=== PATIENT | male | born 1940 | race Caucasian/White ===

== ENCOUNTER 2018-07-23 08:15 | Day surgery (SDC) | payer OTHER ==
[~2018-07-23] VITALS: Ht 172.7 cm; Wt 90.5 kg
[~2018-07-23 08:15] MED LIST: AMIL5 PO; AMLO5; ASPI81CH PO; Augmentin 875-1 EACH PO; CALC1.25T; Hydrocodone-Ap1 EA20 PO; LOPE2C PO; LOSHYD; METO50; Metoprolol Tar100 MG PO; Neurontin 300300 MG PO; OMEPRAZOLE MAGN20 MG; Omeprazole20 M1 PO; PROBIOTIC1 EAC1 PO; PSYL5.85P; PSYL5.85P PO; TAMS.4ER; TRAM50 PO; VITAMIN B-1000.4 MG PO; ZESTORETIC 20-121 E1 PO
== END 2018-07-23 10:31 | disposition home or self-care (01) ==
LOC: ORSCSDS 08:15
PROVIDERS: Internal Medicine Gastroenterology
PROC: 0DBK8ZX Excision of Ascending Colon, Via Natural or Artificial Opening Endoscopic, Diagnostic (ICD-10-PCS; principal; 2018-07-23 09:45)
PROC: 0DBH8ZX Excision of Cecum, Via Natural or Artificial Opening Endoscopic, Diagnostic (ICD-10-PCS; principal; 2018-07-23 09:45)
DX: Z12.11 Encounter for screening for malignant neoplasm of colon (principal); D12.0 Benign neoplasm of cecum; D12.2 Benign neoplasm of ascending colon; E11.9 Type 2 diabetes mellitus without complications; Z86.010 Personal history of colon polyps; K57.30 Diverticulosis of large intestine without perforation or abscess without bleeding; R10.84 Generalized abdominal pain; Z87.891 Personal history of nicotine dependence; E66.9 Obesity, unspecified; Z68.30 Body mass index [BMI] 30.0-30.9, adult; Z79.82 Long term (current) use of aspirin; Z79.899 Other long term (current) drug therapy
CPT/HCPCS: 82947; 88305; J0330; J1980; J2405; J7120

== ENCOUNTER 2019-01-19 09:11 | Day surgery (SDC) | payer OTHER ==
[~2019-01-19] VITALS: Ht 172.7 cm; Wt 93.0 kg
--- NOTE | 2019-01-19 11:45 | NUR ---
01/19/19 1145 Oxana Mcgraw WHEN PT. WAS FIRST GIVEN PROPOFOL, PT. WITH LEFT EYE TWITCHING & BODY STARTED TWITCHING/JERKING/MOVING. DR. CORREA AWARE. ONCE MORE SEDATED TWITCHING SUBSIDED,
--- NOTE | 2019-01-19 11:48 | NUR ---
01/19/19 1148 Oxana Mcgraw PT. ASKED IF WAS GOING TO COME TALK TO HIM. PT. INSTRUCTED TALKED WITH HIM IN THE ENDO ROOM. PT. THEN REALIZED THAT DID TALK WITH HIM. PT. REMINDED WHAT HAD TOLD HIM & HE WOULD CALL HIM WITH BX RESULTS.
== END 2019-01-19 11:30 | disposition home or self-care (01) ==
LOC: ORSCSDS 09:11
PROVIDERS: Internal Medicine Gastroenterology
PROC: 0DB58ZX Excision of Esophagus, Via Natural or Artificial Opening Endoscopic, Diagnostic (ICD-10-PCS; principal; 2019-01-19 10:30)
DX: K22.70 Barrett's esophagus without dysplasia (principal); E11.9 Type 2 diabetes mellitus without complications; E66.9 Obesity, unspecified; I10 Essential (primary) hypertension; Z68.31 Body mass index [BMI] 31.0-31.9, adult; Z87.891 Personal history of nicotine dependence; Z79.899 Other long term (current) drug therapy; Z79.82 Long term (current) use of aspirin
CPT/HCPCS: 82947; 87081; 88305; J2704; J7120

== ENCOUNTER → 2020-04-18 | Outpatient (CLI) | payer OTHER | LOC: LAB SHORT 17:43 → LAB 17:43 | DX: L97.509 Non-pressure chronic ulcer of other part of unspecified foot with unspecified severity (principal) | CPT/HCPCS: 87070; 87075; 87077; 87186; 87205 ==

== ENCOUNTER 2020-05-17 07:58 | Day surgery (SDC) | payer OTHER ==
[~2020-05-17] VITALS: Ht 172.7 cm; Wt 90.5 kg
[~2020-05-17 07:58] MED LIST changes: +CITA20 PO; +Flomax0.4 MG PO; +LISI20 PO; +MULVITA PO; +VIT1CAPS12 PO
--- NOTE | 2020-05-17 15:36 | NUR ---
DISCHARGE GONE OVER WITH PT, VERBALIZES UNDERSTANDIONG OF INSTRUCTIONS. PT DRESSED PER SELF WITHOUT DIFFICULTY. GROIN SITE STABLE. SALINE LOCK REMOVED WITH CATHETER INTACT. PT TO PRIVATE VEHICLE PER W/C.
== END 2020-05-17 15:30 | disposition home or self-care (01) ==
LOC: MHTC 07:58
DX: E11.51 Type 2 diabetes mellitus with diabetic peripheral angiopathy without gangrene (principal); I70.213 Atherosclerosis of native arteries of extremities with intermittent claudication, bilateral legs; E11.621 Type 2 diabetes mellitus with foot ulcer; L97.529 Non-pressure chronic ulcer of other part of left foot with unspecified severity; L97.519 Non-pressure chronic ulcer of other part of right foot with unspecified severity; K21.9 Gastro-esophageal reflux disease without esophagitis; I10 Essential (primary) hypertension; E78.5 Hyperlipidemia, unspecified; E11.42 Type 2 diabetes mellitus with diabetic polyneuropathy; Z87.891 Personal history of nicotine dependence; Z85.820 Personal history of malignant melanoma of skin; Z88.8 Allergy status to other drugs, medicaments and biological substances; Z79.82 Long term (current) use of aspirin; Z79.899 Other long term (current) drug therapy
CPT/HCPCS: 85347; 99152; 99153; C1725; C1757; C1760; C1769; C1887; C1894; J1644; J2250; J3010; J7030; J7050; Q9967

== ENCOUNTER → 2020-05-30 | Outpatient (CLI) | payer OTHER ==
[~2020-05-30] MED LIST changes: +ATOR40TA PO; +ATORVASTATIN CA20 MG PO; +Aspirin EC81 MG PO; +CLOP75 PO; +HYDR10 PO; +HYDR1TAB94 PO; +HYDROCODONE-AC1 EAC7 PO; +Isosorbide Mono30 MG PO; +PREG150 PO; +SULTRIDS PO; +TOPROL XL25 MG PO; -VITAMIN B-1000.4 MG PO; +Vitamin B Comple1 EA PO
== END | disposition home or self-care (01) ==
LOC: PLD 09:17 → LAB SHORT 09:17
DX: M86.171 Other acute osteomyelitis, right ankle and foot (principal); I96 Gangrene, not elsewhere classified; Z89.421 Acquired absence of other right toe(s); Z89.411 Acquired absence of right great toe
CPT/HCPCS: 88305; 88311

== ENCOUNTER → 2020-06-02 | Outpatient (CLI) | payer OTHER ==
[~2020-06-02] MED LIST changes: -HYDR1TAB94 PO; -HYDROCODONE-AC1 EAC7 PO
== END | disposition home or self-care (01) ==
LOC: LAB SHORT 10:00 → PLD 10:00
DX: M86.9 Osteomyelitis, unspecified (principal)
CPT/HCPCS: 87070; 87075; 87077; 87186; 87205

== ENCOUNTER 2020-06-15 06:41 | Day surgery (SDC) | payer OTHER ==
[~2020-06-15 06:41] MED LIST changes: -ATOR40TA PO; -ATORVASTATIN CA20 MG PO; -Aspirin EC81 MG PO; -CLOP75 PO; -HYDR10 PO; -Isosorbide Mono30 MG PO; -PREG150 PO; -SULTRIDS PO; -TOPROL XL25 MG PO; +VITAMIN B-1000.4 MG PO; -Vitamin B Comple1 EA PO
== END 2020-06-15 22:49 | disposition home or self-care (01) ==
LOC: WOUND 06:41
DX: E11.621 Type 2 diabetes mellitus with foot ulcer (principal); L97.512 Non-pressure chronic ulcer of other part of right foot with fat layer exposed; L97.522 Non-pressure chronic ulcer of other part of left foot with fat layer exposed; E11.52 Type 2 diabetes mellitus with diabetic peripheral angiopathy with gangrene; I96 Gangrene, not elsewhere classified; D64.9 Anemia, unspecified; I10 Essential (primary) hypertension; E11.69 Type 2 diabetes mellitus with other specified complication; M86.8X9 Other osteomyelitis, unspecified sites; E11.40 Type 2 diabetes mellitus with diabetic neuropathy, unspecified; Z89.421 Acquired absence of other right toe(s); Z89.411 Acquired absence of right great toe; Z87.891 Personal history of nicotine dependence; Z79.82 Long term (current) use of aspirin; Z79.899 Other long term (current) drug therapy
CPT/HCPCS: G0463

== ENCOUNTER 2020-06-21 00:33 | Day surgery (SDC) | payer OTHER ==
[~2020-06-21 00:33] MED LIST changes: -CITA20 PO; -MULVITA PO; -Omeprazole20 M1 PO; -VITAMIN B-1000.4 MG PO
[2020-06-22] MEDS ORDERED: PREG150 PO (13:56)
[2020-06-22] MEDS ORDERED: SULTRIDS PO (15:05)
[2020-06-22] MEDS ORDERED: CITA20 PO (15:16)
[2020-06-22] MEDS ORDERED: Omeprazole20 M1 PO (15:31)
[2020-06-22] MEDS ORDERED: Vitamin B Comple1 EA PO (15:32)
[2020-06-22] MEDS ORDERED: MULVITA PO (15:33)
[2020-06-25] MEDS ORDERED: ASPI81CH PO (12:32)
== END 2020-06-21 22:58 | disposition home or self-care (01) ==
LOC: WOUND 00:33
DX: E11.621 Type 2 diabetes mellitus with foot ulcer (principal); L97.512 Non-pressure chronic ulcer of other part of right foot with fat layer exposed; E11.52 Type 2 diabetes mellitus with diabetic peripheral angiopathy with gangrene; I96 Gangrene, not elsewhere classified; E11.40 Type 2 diabetes mellitus with diabetic neuropathy, unspecified; E11.59 Type 2 diabetes mellitus with other circulatory complications; E11.69 Type 2 diabetes mellitus with other specified complication; M86.8X9 Other osteomyelitis, unspecified sites; D64.9 Anemia, unspecified; I10 Essential (primary) hypertension; Z89.421 Acquired absence of other right toe(s); Z89.411 Acquired absence of right great toe; Z79.82 Long term (current) use of aspirin; Z79.899 Other long term (current) drug therapy
CPT/HCPCS: G0463

== ENCOUNTER 2020-06-22 13:25 | Inpatient (IN) | payer OTHER ==
[~2020-06-22] VITALS: Ht 172.7 cm; Wt 91.2 kg
[2020-06-22] MEDS ORDERED: PREG150 PO (13:56)
[2020-06-22 14:03] LABS: BASOPHILS ABSOLUTE AUTO 0.06 K/mm3 (0.00-0.23); BASOPHILS PERCENT AUTO 1 % (0-2); EOSINOPHILS ABSOLUTE AUTO 0.15 K/mm3 (0.00-0.68); EOSINOPHILS PERCENT AUTO 2 % (0-6); Hematocrit 32.7 % (37.0-53.0); Hemoglobin 10.5 g/dL (13.5-17.5); IMMATURE GRAN ABSOLUTE AUTO 0.09 K/mm3 (0.00-0.10); IMMATURE GRAN PERCENT AUTO 1 % (0-1); LYMPHOCYTES PERCENT AUTO 14 % (21-46); MONOCYTES ABSOLUTE AUTO 1.01 K/mm3 (0.16-1.47); MONOCYTES PERCENT AUTO 12 % (4-13); Mean Corpuscular HGB 31.1 pg (26.0-34.0); Mean Corpuscular HGB Conc 32.1 g/dL (31.5-36.5); Mean Corpuscular Volume 97 fL (80-100); Mean Platelet Volume 11.3 fL (9.1-12.4); NEUTROPHILS ABSOLUTE AUTO 6.04 K/mm3 (1.96-9.15); NEUTROPHILS PERCENT AUTO 71 % (41-73); Platelet Count 134 K/mm3 (150-400); RDW Standard Deviation 46.7 fL (35.1-46.3); Red Blood Cell Count 3.38 M/mm3 (4.30-5.90); White Blood Cell Count 8.55 K/mm3 (4.00-11.30)
[2020-06-22 14:24] LABS: Albumin, Blood 2.9 g/dL (3.4-5.0); Albumin/Globulin Ratio 0.6 (0.8-1.8); Bilirubin, Total 0.3 mg/dL (0.1-1.0); Bun/Creatinine Ratio 21.6 (12.0-20.0); Calcium, Blood 8.5 mg/dL (8.5-10.1); Creatinine, Blood 2.18 mg/dL (0.60-1.20); Globulin, Blood 4.6 g/dL (2.2-4.0); Potassium, Blood 5.2 mmol/L (3.5-5.5); Total Protein, Blood 7.5 g/dL (6.4-8.2)
[2020-06-22 14:57] LABS: Influenza A, PCR Negative (NEGATIVE); Influenza B, PCR Negative (NEGATIVE); Resp Syncytial Virus, PCR Negative (NEGATIVE); SARS-Cov-2 (COVID-19) PCR, MMC Negative (NEGATIVE)
[2020-06-22] MEDS ORDERED: SULTRIDS PO (15:05)
[2020-06-22] MEDS ORDERED: CITA20 PO (15:16)
[2020-06-22 15:27] LABS: Bun/Creatinine Ratio 19.7 (12.0-20.0); Calcium, Blood 8.6 mg/dL (8.5-10.1); Creatinine, Blood 2.23 mg/dL (0.60-1.20); Potassium, Blood 5.1 mmol/L (3.5-5.5)
[2020-06-22] MEDS ORDERED: Omeprazole20 M1 PO (15:31)
[2020-06-22] MEDS ORDERED: Vitamin B Comple1 EA PO (15:32)
[2020-06-22] MEDS ORDERED: MULVITA PO (15:33)
[2020-06-22 17:15] LABS: Troponin I <0.015 ng/mL (0.000-0.040)
[2020-06-22 19:08] LABS: Source, Urine Catheter
[2020-06-22 19:22] LABS: Appearance, Urine Clear (Clear); Bilirubin, Urine Neg (Neg); Blood, Urine Neg (Neg); Color, Urine Yellow (P-Yellow); Glucose Qualitative, Urine Neg (Neg); Ketones, Urine Neg (Neg); Leukocyte Esterase, Urine Neg (Neg); Nitrite, Urine Neg (Neg); Protein, Urine Neg (Neg); Urobilinogen, Urine NORM (Normal)
[2020-06-22 23:41] LABS: Albumin, Blood 2.9 g/dL (3.4-5.0); Anion Gap 6 mmol/L (6-16); Blood Urea Nitrogen 48 mg/dL (8-24); Bun/Creatinine Ratio 21.9 (12.0-20.0); CO2, Blood 21 mmol/L (21-32); Calcium, Blood 7.7 mg/dL (8.5-10.1); Chloride, Blood 109 mmol/L (98-108); Creatinine, Blood 2.19 mg/dL (0.60-1.20); Glomerular Filtration Rate 31 (60-); Glucose, Blood 177 mg/dL (70-99); Phosphorus, Blood 2.7 mg/dL (2.5-4.9); Potassium, Blood 5.3 mmol/L (3.5-5.5); Sodium, Blood 136 mmol/L (136-145)
[2020-06-23 05:13] LABS: BASOPHILS ABSOLUTE AUTO 0.01 K/mm3 (0.00-0.23); BASOPHILS PERCENT AUTO 0 % (0-2); EOSINOPHILS PERCENT AUTO 0 % (0-6); Hemoglobin 9.7 g/dL (13.5-17.5); IMMATURE GRAN ABSOLUTE AUTO 0.04 K/mm3 (0.00-0.10); IMMATURE GRAN PERCENT AUTO 1 % (0-1); LYMPHOCYTES ABSOLUTE AUTO 0.49 K/mm3 (0.84-5.20); LYMPHOCYTES PERCENT AUTO 7 % (21-46); MONOCYTES ABSOLUTE AUTO 0.12 K/mm3 (0.16-1.47); MONOCYTES PERCENT AUTO 2 % (4-13); Mean Corpuscular HGB Conc 32.3 g/dL (31.5-36.5); Mean Corpuscular Volume 96 fL (80-100); Mean Platelet Volume 11.2 fL (9.1-12.4); NEUTROPHILS ABSOLUTE AUTO 6.34 K/mm3 (1.96-9.15); NEUTROPHILS PERCENT AUTO 91 % (41-73); Platelet Count 87 K/mm3 (150-400); RDW Coefficient Variation 12.9 % (11.7-14.2); RDW Standard Deviation 45.2 fL (35.1-46.3); Red Blood Cell Count 3.13 M/mm3 (4.30-5.90)
[2020-06-23 05:31] LABS: Albumin, Blood 2.8 g/dL (3.4-5.0); Anion Gap 7 mmol/L (6-16); Blood Urea Nitrogen 46 mg/dL (8-24); Bun/Creatinine Ratio 22.5 (12.0-20.0); CO2, Blood 20 mmol/L (21-32); Calcium, Blood 7.9 mg/dL (8.5-10.1); Chloride, Blood 109 mmol/L (98-108); Creatinine, Blood 2.04 mg/dL (0.60-1.20); Glomerular Filtration Rate 34 (60-); Glucose, Blood 173 mg/dL (70-99); Phosphorus, Blood 3.6 mg/dL (2.5-4.9); Potassium, Blood 5.2 mmol/L (3.5-5.5); Sodium, Blood 136 mmol/L (136-145)
[2020-06-24 05:35] LABS: BASOPHILS PERCENT AUTO 0 % (0-2); EOSINOPHILS PERCENT AUTO 0 % (0-6); Hematocrit 26.6 % (37.0-53.0); Hemoglobin 8.7 g/dL (13.5-17.5); IMMATURE GRAN ABSOLUTE AUTO 0.04 K/mm3 (0.00-0.10); IMMATURE GRAN PERCENT AUTO 1 % (0-1); LYMPHOCYTES ABSOLUTE AUTO 0.45 K/mm3 (0.84-5.20); LYMPHOCYTES PERCENT AUTO 8 % (21-46); MONOCYTES ABSOLUTE AUTO 0.24 K/mm3 (0.16-1.47); MONOCYTES PERCENT AUTO 4 % (4-13); Mean Corpuscular HGB 30.9 pg (26.0-34.0); Mean Corpuscular HGB Conc 32.7 g/dL (31.5-36.5); Mean Corpuscular Volume 94 fL (80-100); Mean Platelet Volume 11.4 fL (9.1-12.4); NEUTROPHILS ABSOLUTE AUTO 5.12 K/mm3 (1.96-9.15); NEUTROPHILS PERCENT AUTO 88 % (41-73); Platelet Count 80 K/mm3 (150-400); RDW Coefficient Variation 12.7 % (11.7-14.2); RDW Standard Deviation 43.8 fL (35.1-46.3); Red Blood Cell Count 2.82 M/mm3 (4.30-5.90); White Blood Cell Count 5.85 K/mm3 (4.00-11.30)
[2020-06-24 05:51] LABS: Albumin, Blood 2.6 g/dL (3.4-5.0); Anion Gap 5 mmol/L (6-16); Blood Urea Nitrogen 47 mg/dL (8-24); Bun/Creatinine Ratio 26.3 (12.0-20.0); CO2, Blood 22 mmol/L (21-32); Chloride, Blood 111 mmol/L (98-108); Creatinine, Blood 1.79 mg/dL (0.60-1.20); Glomerular Filtration Rate 39 (60-); Glucose, Blood 153 mg/dL (70-99); Phosphorus, Blood 2.9 mg/dL (2.5-4.9); Potassium, Blood 4.8 mmol/L (3.5-5.5); Sodium, Blood 138 mmol/L (136-145)
[2020-06-24 06:36] LABS: CHOL/HDL RATIO 4.4; Cholesterol 106 mg/dL (50-200); HDL Cholesterol 24 mg/dL (>39); LDL/HDL RATIO 2.3; Low Density Lipoprotein Chol 56 mg/dL (0-110); Triglycerides 130 mg/dL (30-160); Very Low Density Lipoprot Chol 26 mg/dL (6-32)
[2020-06-25 06:19] LABS: Albumin, Blood 2.7 g/dL (3.4-5.0); Anion Gap 8 mmol/L (6-16); Blood Urea Nitrogen 39 mg/dL (8-24); Bun/Creatinine Ratio 26.7 (12.0-20.0); CO2, Blood 21 mmol/L (21-32); Calcium, Blood 7.8 mg/dL (8.5-10.1); Chloride, Blood 112 mmol/L (98-108); Creatinine, Blood 1.46 mg/dL (0.60-1.20); Glomerular Filtration Rate 50 (60-); Glucose, Blood 112 mg/dL (70-99); Phosphorus, Blood 2.2 mg/dL (2.5-4.9); Potassium, Blood 4.5 mmol/L (3.5-5.5); Sodium, Blood 141 mmol/L (136-145)
[2020-06-25] MEDS ORDERED: TOPROL XL25 MG PO (12:28)
[2020-06-25] MEDS ORDERED: Aspirin EC81 MG PO (12:32)
[2020-06-25] MEDS ORDERED: ATOR40TA PO (12:32)
[2020-06-25] MEDS ORDERED: CLOP75 PO (12:33)
[2020-06-25] MEDS ORDERED: HYDR10 PO (12:34)
[2020-06-25] MEDS ORDERED: Isosorbide Mono30 MG PO (12:34)
== END 2020-06-25 13:20 | disposition home or self-care (01) | DRG 252 ==
LOC: ER 13:25 → PCU 13:26 → ICUE 16:48 → PCU 16:48 → ICUE 17:20
PROVIDERS: Emergency Medicine; Internal Medicine Cardiovascular Disease; Internal Medicine Critical Care Medicine; Nurse Practitioner Acute Care; Physician Assistant; Radiology Diagnostic Radiology; ADMIT Internal Medicine
PROC: B41D1ZZ Fluoroscopy of Aorta and Bilateral Lower Extremity Arteries using Low Osmolar Contrast (ICD-10-PCS; principal; 2020-06-22)
PROC: 047P3ZZ Dilation of Right Anterior Tibial Artery, Percutaneous Approach (ICD-10-PCS; 2020-06-22)
PROC: 047R3ZZ Dilation of Right Posterior Tibial Artery, Percutaneous Approach (ICD-10-PCS; 2020-06-22)
PROC: 047T3ZZ Dilation of Right Peroneal Artery, Percutaneous Approach (ICD-10-PCS; 2020-06-22)
PROC: 06HY33Z Insertion of Infusion Device into Lower Vein, Percutaneous Approach (ICD-10-PCS; 2020-06-22)
DX: I70.201 Unspecified atherosclerosis of native arteries of extremities, right leg (principal); I21.A1 Myocardial infarction type 2; E11.52 Type 2 diabetes mellitus with diabetic peripheral angiopathy with gangrene; N17.9 Acute kidney failure, unspecified; E87.1 Hypo-osmolality and hyponatremia; T88.6XXA Anaphylactic reaction due to adverse effect of correct drug or medicament properly administered, initial encounter; K21.9 Gastro-esophageal reflux disease without esophagitis; E11.22 Type 2 diabetes mellitus with diabetic chronic kidney disease; N18.30 Chronic kidney disease, stage 3 unspecified; I12.9 Hypertensive chronic kidney disease with stage 1 through stage 4 chronic kidney disease, or unspecified chronic kidney disease; Z89.412 Acquired absence of left great toe; Z66 Do not resuscitate; Z79.82 Long term (current) use of aspirin; Z87.891 Personal history of nicotine dependence; Z20.828 Contact with and (suspected) exposure to other viral communicable diseases; Z89.411 Acquired absence of right great toe; E11.40 Type 2 diabetes mellitus with diabetic neuropathy, unspecified; D69.6 Thrombocytopenia, unspecified; E11.621 Type 2 diabetes mellitus with foot ulcer; M54.5 Low back pain; G89.29 Other chronic pain; T50.8X5A Adverse effect of diagnostic agents, initial encounter; Y92.239 Unspecified place in hospital as the place of occurrence of the external cause; I44.0 Atrioventricular block, first degree; L97.519 Non-pressure chronic ulcer of other part of right foot with unspecified severity
CPT/HCPCS: 0241U; 36415; 36556; 37228; 37232; 51702; 71045; 73700; 75716; 75774; 80048; 80053; 80061; 80069; 81003; 82550; 83036; 83605; 83735; 83880; 84100; 84484; 85025; 85651; 85730; 86140; 87040; 93005; 93010; 93306; 99152; 99153; 99285-25; A9270; A9270-GY; C1725; C1751; C1769; C1887; C1894; J0690; J1200; J1265; J1644; J2250; J2920; J2930; J3010; J3370; J3475; J7030; J7040; J7050; P9046; Q9967

== ENCOUNTER 2020-06-27 08:36 | Inpatient (IN) | payer OTHER ==
[~2020-06-27] VITALS: Ht 172.7 cm; Wt 86.2 kg
[~2020-06-27 08:36] MED LIST changes: +ATOR40TA PO; +Aspirin EC81 MG PO; +CITA20 PO; +CLOP75 PO; +HYDR10 PO; +Isosorbide Mono30 MG PO; +MULVITA PO; +Omeprazole20 M1 PO; +PREG150 PO; +SULTRIDS PO; +TOPROL XL25 MG PO; +Vitamin B Comple1 EA PO
[2020-06-27 09:42] LABS: BASOPHILS ABSOLUTE AUTO 0.01 K/mm3 (0.00-0.23); BASOPHILS PERCENT AUTO 0 % (0-2); EOSINOPHILS ABSOLUTE AUTO 0.08 K/mm3 (0.00-0.68); EOSINOPHILS PERCENT AUTO 2 % (0-6); Hematocrit 29.9 % (37.0-53.0); Hemoglobin 9.7 g/dL (13.5-17.5); IMMATURE GRAN ABSOLUTE AUTO 0.06 K/mm3 (0.00-0.10); IMMATURE GRAN PERCENT AUTO 1 % (0-1); LYMPHOCYTES ABSOLUTE AUTO 0.77 K/mm3 (0.84-5.20); LYMPHOCYTES PERCENT AUTO 15 % (21-46); MONOCYTES ABSOLUTE AUTO 0.42 K/mm3 (0.16-1.47); MONOCYTES PERCENT AUTO 8 % (4-13); Mean Corpuscular HGB 31.2 pg (26.0-34.0); Mean Corpuscular HGB Conc 32.4 g/dL (31.5-36.5); Mean Corpuscular Volume 96 fL (80-100); Mean Platelet Volume 10.9 fL (9.1-12.4); NEUTROPHILS ABSOLUTE AUTO 3.74 K/mm3 (1.96-9.15); NEUTROPHILS PERCENT AUTO 74 % (41-73); Platelet Count 89 K/mm3 (150-400); RDW Coefficient Variation 13.2 % (11.7-14.2); RDW Standard Deviation 45.8 fL (35.1-46.3); Red Blood Cell Count 3.11 M/mm3 (4.30-5.90); White Blood Cell Count 5.08 K/mm3 (4.00-11.30)
[2020-06-27 09:56] LABS: International Normalized Ratio 1.24; Prothrombin Time Results 13.1 Sec (9.7-11.5)
[2020-06-27 10:07] LABS: Alanine Aminotransfer (ALT/SGP 26 U/L (12-78); Albumin, Blood 2.8 g/dL (3.4-5.0); Albumin/Globulin Ratio 0.8 (0.8-1.8); Alk Phos 53 U/L (50-136); Anion Gap 9 mmol/L (6-16); Aspartate Aminotrans (AST/SGOT 27 U/L (12-37); Bilirubin, Total 0.6 mg/dL (0.1-1.0); Blood Urea Nitrogen 25 mg/dL (8-24); Bun/Creatinine Ratio 20.5 (12.0-20.0); CO2, Blood 22 mmol/L (21-32); Calcium, Blood 8.3 mg/dL (8.5-10.1); Chloride, Blood 109 mmol/L (98-108); Creatinine, Blood 1.22 mg/dL (0.60-1.20); Globulin, Blood 3.4 g/dL (2.2-4.0); Glomerular Filtration Rate >60 (60-); Glucose, Blood 119 mg/dL (70-99); Magnesium, Blood 1.1 mg/dL (1.6-2.4); Phosphorus, Blood 2.8 mg/dL (2.5-4.9); Potassium, Blood 3.7 mmol/L (3.5-5.5); Sodium, Blood 140 mmol/L (136-145); Total Protein, Blood 6.2 g/dL (6.4-8.2); Troponin I 0.975 ng/mL (0.000-0.040)
[2020-06-27] MEDS ORDERED: ATORVASTATIN CA20 MG PO (12:13)
[2020-06-27] MEDS ORDERED: HYDR10 PO (12:13)
--- NOTE | 2020-06-27 16:54 | NUR ---
PATIENT IS ALERT AND ORIENTED AND COOPERATIVE WITH CARE. C/O NEUROPATHIC PAIN IN HIS BLE. DR. SIERRA SPOKE WITH DR. KENDRICK OVER THE PHONE TODAY ABOUT THE PATIENT. DR. ERWIN WAS CONSULTED AND SAW THE PATIENT THIS AFTERNOON AT THE BEDSIDE. THE PATIENT C/O DIFFICULTY URINATING, DR. SIERRA INCREASED THE DOSAGE OF FLOMAX. THE PATIENT IS ENCOURAGED TO USE THE URINAL OR GO TO THE BATHROOM TO VOID. HYPERTENSION TREATED PER EMAR. WILL CONTINUE TO MONITOR
--- NOTE | 2020-06-27 19:08 | NUR ---
md with pt, assessed right foot. see MD notations re details.
--- NOTE | 2020-06-28 01:32 | NUR ---
PT ADMITTED ON PREVIOUS SHIFT. ALERT AND ORIENTED. MD ASSESSED RIGHT FOOT, MRI ORDERED- SEE MD NOTATIONS. SEE PIC IN CHART FOR DETAILS. ANALGESIC GIVEN FOR PAIN - SEE MAR FOR DETAILS. CALL LIGHT IN REACH. HOB ELEVATED FOR COMFORT. WILL CONTINUE TO MONITOR.
[2020-06-28 05:01] LABS: Hematocrit 28.1 % (37.0-53.0); Hemoglobin 9.2 g/dL (13.5-17.5); Mean Corpuscular HGB 31.1 pg (26.0-34.0); Mean Corpuscular HGB Conc 32.7 g/dL (31.5-36.5); Mean Corpuscular Volume 95 fL (80-100); Mean Platelet Volume 11.1 fL (9.1-12.4); Platelet Count 87 K/mm3 (150-400); RDW Coefficient Variation 13.2 % (11.7-14.2); RDW Standard Deviation 45.4 fL (35.1-46.3); Red Blood Cell Count 2.96 M/mm3 (4.30-5.90); White Blood Cell Count 4.01 K/mm3 (4.00-11.30)
[2020-06-28 05:17] LABS: Anion Gap 5 mmol/L (6-16); Blood Urea Nitrogen 20 mg/dL (8-24); Bun/Creatinine Ratio 17.2 (12.0-20.0); CO2, Blood 25 mmol/L (21-32); Calcium, Blood 8.3 mg/dL (8.5-10.1); Chloride, Blood 110 mmol/L (98-108); Creatinine, Blood 1.16 mg/dL (0.60-1.20); Glomerular Filtration Rate >60 (60-); Glucose, Blood 102 mg/dL (70-99); Magnesium, Blood 1.6 mg/dL (1.6-2.4); Potassium, Blood 3.9 mmol/L (3.5-5.5); Sodium, Blood 140 mmol/L (136-145)
--- NOTE | 2020-06-28 06:33 | NUR ---
SHIFT SUMMARY HAS BEEN RESTING QUIETLYWITH FEW INTERRUPTIONS THIS SHIFT. CALL LIGHT IN REACH
--- NOTE | 2020-06-28 14:15 | NUR ---
Spiritual care visit conducted. Patient is sitting up in bed and alert. Patient tells me about his upcoming amputation and the apprehension he feels about the pain he may encounter post surgery. Patient talks at length about the of his , 2yrs ago, and how that effects him to this day. Patient also discusses his time in the [employer], his career in [employer] and his motorcycle and golf hobbies. Patient speaks of his on again/off again jordyn and how he does much better with his outlook and attitude when he is connecting to God. I normalize patient's experience, reinforce helpful attitudes and practices and provide grief support, pastoral curriculum counselor and prayer. Patient responds well and shows signs of reduced stress and fear. I will continue to remain available to patient and family.
--- NOTE | 2020-06-28 17:20 | NUR ---
PT AOX4 AND COOPERATIVE OF CARE. PT COMPLETED MRI AND IS WAITING TO HEAR WHAT THE DR KENDRICK TO REVIEW MRI AND MAKE A PLAN FOR PT'S FOOT AND WHAT WILL BE DONE. PT WAS ABLE TO GET UP TO RESTROOM A ONE PERSON WITH GAITBELT AND WALKER. PT DENIED PAIN TODAY AND PLEASANT TO WORK WITH. CALL LIGHT IS WITHIN REACH WILL CONTINUE TO MONITOR.
--- NOTE | 2020-06-28 19:19 | NUR ---
AWAKE. SMILING. TALKATIVE. JOKES ITH STAFF. CALL LIGHT IN REACH
[2020-06-29 05:05] LABS: Hematocrit 27.2 % (37.0-53.0); Hemoglobin 8.7 g/dL (13.5-17.5)
--- NOTE | 2020-06-29 06:17 | NUR ---
SHIFT SUMMARY HAS BEEN RESTING QUIETLY MOST OF THE NIGHT AFTER HAVING BEEN STRAIGHT CATHED AT FOR URINE RETENTION. AFFECT CHEERFUL AT THIS TIME HE TAKES HIS AM MEDICATION. CALL LIGHT IN REACH
[2020-06-29 11:44] LABS: Vancomycin, Trough 15.2 ug/mL (5.0-10.0)
--- NOTE | 2020-06-29 18:09 | NUR ---
PT HAS BEEN AOX4 AND COOPERATIVE OF ALL CARE. PT WAS UNABLE AGAIN TO VOID ON HIS OWN EVEN WHEN HE GOT UP AND WENT INTO THE RESTROOM A ONE PERSON ASSIST WITH GAITBELT AND WALKER. DR MICHELLE ORDERED ISSA TO BE PLACED AND WAS INSTUCTED THAT PT HAS STATED HE WAS HAVING PROBLEMS VOIDING PRIOR TO ADMITTING TO HOSPITAL. PT WAS NPO ALL MORNING AND LEFT FOR REMOVAL OF R GREAT TOE AT 1430. PT CAME BACK TO ROOM AT 1800 AND BEDSIDE REPORT WAS RECIEVED. PT AOX4 AND READY TO EAT DINNER. PT DENIES ANY PAIN AT THIS TIME. R FOOT ELEVATED ON PILLOWS AND CALL LIGTH WITHIN REACH. WILL CONTINUE TO MONITOR.
--- NOTE | 2020-06-30 05:06 | NUR ---
SHIFT SUMMARY NO ACUTE CHANGES THIS SHIFT, A&OX4, MEDICATED PER MAR FOR PAIN, DID NOT SLEEP WELL THIS SHIFT, STATES HE NORMALLY SLEEPS ON SIDE AND IS UNABLE D/T SURG, AND THAT HE HAS "A LOT ON MY MIND", R FOOT ELEVATED T/O SHIFT, SLEEPING AT THIS TIME, CALL LIGHT IN REACH, WILL CONT TO MONITOR UNTIL REPORT GIVEN TO DAY RN.
[2020-06-30 07:58] LABS: BASOPHILS ABSOLUTE AUTO 0.01 K/mm3 (0.00-0.23); BASOPHILS PERCENT AUTO 0 % (0-2); EOSINOPHILS ABSOLUTE AUTO 0.17 K/mm3 (0.00-0.68); EOSINOPHILS PERCENT AUTO 4 % (0-6); Hematocrit 24.6 % (37.0-53.0); Hemoglobin 7.9 g/dL (13.5-17.5); IMMATURE GRAN ABSOLUTE AUTO 0.12 K/mm3 (0.00-0.10); IMMATURE GRAN PERCENT AUTO 3 % (0-1); LYMPHOCYTES ABSOLUTE AUTO 1.13 K/mm3 (0.84-5.20); LYMPHOCYTES PERCENT AUTO 23 % (21-46); MONOCYTES ABSOLUTE AUTO 0.49 K/mm3 (0.16-1.47); MONOCYTES PERCENT AUTO 10 % (4-13); Mean Corpuscular HGB 31.2 pg (26.0-34.0); Mean Corpuscular HGB Conc 32.1 g/dL (31.5-36.5); Mean Corpuscular Volume 97 fL (80-100); NEUTROPHILS ABSOLUTE AUTO 2.91 K/mm3 (1.96-9.15); NEUTROPHILS PERCENT AUTO 60 % (41-73); Platelet Count 89 K/mm3 (150-400); RDW Coefficient Variation 13.6 % (11.7-14.2); RDW Standard Deviation 47.9 fL (35.1-46.3); Red Blood Cell Count 2.53 M/mm3 (4.30-5.90); White Blood Cell Count 4.83 K/mm3 (4.00-11.30)
[2020-06-30 08:04] LABS: Bun/Creatinine Ratio 16.6 (12.0-20.0); Calcium, Blood 7.6 mg/dL (8.5-10.1); Creatinine, Blood 1.45 mg/dL (0.60-1.20)
--- NOTE | 2020-06-30 15:40 | NUR ---
Patient tells me about his surgery and the struggle with managing the pain. 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 I provide therapeutic listening, spiritual guidance, companionship and prayer. Patient responds well and is very complimentary of the care and time given and states that he will be carrying it with him for years to come.
--- NOTE | 2020-06-30 16:57 | NUR ---
SHIFT SUMMARY- PT IS A/O, PLESANT AND COOPERATIVE. HE IS EATING AND DRINKING WELL. HE IS RECIEVING PAIN MEDICATIONS NEEDED. ORAL PAIN MEDS WERE INCREASED THIS SHIFT. ORDERED MEDICATIONS TO HELP HIM SLEEP. HIS DRESSING WAS C/D/I THIS SHIFT. HIS BED IS IN THE LOW POSITION AND CALL LIGHT WITHIN REACH.
--- NOTE | 2020-06-30 19:56 | NUR ---
PT XFER'D TO 356, REPORT GIVEN TO ANIVAL BAUTISTA
--- NOTE | 2020-07-01 04:29 | NUR ---
PATIENT VERY PLEASANT AND COOPERATIVE WITH STAFF. BP ELEVATED THIS MORNING HOWEVER ALL OTHER VITALS STABLE. PATIENT COMPLAINED OF PAIN AT HS AND FELL TO SLEEP AND GOT SOME GOOD SLEEP UP UNTIL MORNING VITALS WERE CHECKED. PATIENT ASSESSED FOR PAIN AT THAT TIME AND HE DENIED PAIN. NO ACUTE CHANGES TO REPORT ON AT THIS TIME. CALL LIGHT IN REACH. WILL CONTINUE TO MONITOR AND PROVIDE CARE NEEDED.
[2020-07-01 09:13] LABS: BASOPHILS ABSOLUTE AUTO 0.02 K/mm3 (0.00-0.23); BASOPHILS PERCENT AUTO 0 % (0-2); EOSINOPHILS ABSOLUTE AUTO 0.12 K/mm3 (0.00-0.68); EOSINOPHILS PERCENT AUTO 2 % (0-6); Hematocrit 27.1 % (37.0-53.0); Hemoglobin 8.5 g/dL (13.5-17.5); IMMATURE GRAN ABSOLUTE AUTO 0.07 K/mm3 (0.00-0.10); IMMATURE GRAN PERCENT AUTO 1 % (0-1); LYMPHOCYTES ABSOLUTE AUTO 0.96 K/mm3 (0.84-5.20); LYMPHOCYTES PERCENT AUTO 18 % (21-46); MONOCYTES ABSOLUTE AUTO 0.58 K/mm3 (0.16-1.47); MONOCYTES PERCENT AUTO 11 % (4-13); Mean Corpuscular HGB 30.7 pg (26.0-34.0); Mean Corpuscular HGB Conc 31.4 g/dL (31.5-36.5); Mean Corpuscular Volume 98 fL (80-100); Mean Platelet Volume 10.7 fL (9.1-12.4); NEUTROPHILS ABSOLUTE AUTO 3.63 K/mm3 (1.96-9.15); NEUTROPHILS PERCENT AUTO 68 % (41-73); Platelet Count 90 K/mm3 (150-400); RDW Coefficient Variation 13.4 % (11.7-14.2); RDW Standard Deviation 47.3 fL (35.1-46.3); Red Blood Cell Count 2.77 M/mm3 (4.30-5.90); White Blood Cell Count 5.38 K/mm3 (4.00-11.30)
[2020-07-01 09:34] LABS: Bun/Creatinine Ratio 19.5 (12.0-20.0); Calcium, Blood 7.5 mg/dL (8.5-10.1); Creatinine, Blood 1.33 mg/dL (0.60-1.20)
--- NOTE | 2020-07-01 10:43 | NUR ---
Patient shares about the great sleep that he had last night and how much better he feels today. Patient talks about his renewed connection to God that he feels and about his excitement to make some changes in his life. I provide therapeutic listening and prayer. Patient responds well and voices that he will have a warm feeling in his heart the rest of the day because of our time together. I will continue to remain available to patient and family.
[2020-07-01 11:47] LABS: Vancomycin, Trough 19.3 ug/mL (5.0-10.0)
--- NOTE | 2020-07-01 15:23 | NUR ---
SUMMARY PT IS A/O X4, PLEASANT/COOPERATIVE AFFECT. 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 DRSG TO R FOOT REMAINS CDI. PLAN FOR DR BLAND TO REASSESS TODAY. PT HAS BEEN ELEVATING LEG ON PILLOWS T/O DAY. HE HAS DECLINED OOB UNTIL SEEN BY DR BLAND. WT BRG STATUS 50% R HEEL TOUCH. HE STATE HX OF BLE NEUROPATHY HOWEVER STATES CONSTANT R FOOT PAIN, HAVE GIVEN NORCO & FENTANYL FOR PAIN RELIEF/CONTROL. NO BM X MULT DAYS, DR MICHELLE NOTIFIED, STATE WILL PLACE ORDERS FOR BOWEL MEDS. PT STATE UNHAPPY WITH MEAL TRAYS, PAPER RULER IN TO SEE HIM, PT STATE SATISFACTION. VSS/AFEBRILE.
--- NOTE | 2020-07-01 19:45 | NUR ---
DR BLAND IN FOR DRSG CHANGE RLE, PLACE ORDERS FOR WOUND VAC, MONOGRAM OPERATOR NOTIFIED, STATE WILL PLACE IN AM.
--- NOTE | 2020-07-02 07:28 | NUR ---
SHIFT SUMMARY PATIENT ALERT AND ORIENTED. HAD NO COMPLAINTS OF SHORTNESS OF BREATH. MEDICATED NEEDED FOR PAIN PER EMAR. HAD MINIMAL NEEDS OVERNIGHT. IV PATENT AND FLUSHED. BED IN LOWEST POSITION WITH WHEELS LOCKED. CALL LIGHT WITHIN REACH. REPORT GIVEN TO ONCOMING RN.
[2020-07-02 07:53] LABS: BASOPHILS ABSOLUTE AUTO 0.01 K/mm3 (0.00-0.23); BASOPHILS PERCENT AUTO 0 % (0-2); EOSINOPHILS PERCENT AUTO 2 % (0-6); Hematocrit 23.2 % (37.0-53.0); Hemoglobin 7.5 g/dL (13.5-17.5); IMMATURE GRAN ABSOLUTE AUTO 0.07 K/mm3 (0.00-0.10); IMMATURE GRAN PERCENT AUTO 1 % (0-1); LYMPHOCYTES PERCENT AUTO 23 % (21-46); MONOCYTES ABSOLUTE AUTO 0.57 K/mm3 (0.16-1.47); MONOCYTES PERCENT AUTO 11 % (4-13); Mean Corpuscular HGB 31.8 pg (26.0-34.0); Mean Corpuscular HGB Conc 32.3 g/dL (31.5-36.5); Mean Corpuscular Volume 98 fL (80-100); Mean Platelet Volume 10.8 fL (9.1-12.4); NEUTROPHILS ABSOLUTE AUTO 3.29 K/mm3 (1.96-9.15); NEUTROPHILS PERCENT AUTO 63 % (41-73); Platelet Count 84 K/mm3 (150-400); RDW Coefficient Variation 13.5 % (11.7-14.2); RDW Standard Deviation 47.6 fL (35.1-46.3); Red Blood Cell Count 2.36 M/mm3 (4.30-5.90); White Blood Cell Count 5.24 K/mm3 (4.00-11.30)
[2020-07-02 08:05] LABS: Calcium, Blood 7.6 mg/dL (8.5-10.1); Creatinine, Blood 1.38 mg/dL (0.60-1.20); Potassium, Blood 4.2 mmol/L (3.5-5.5)
--- NOTE | 2020-07-02 18:42 | NUR ---
SHIFT SUMMARY KARISSA HAD A WOUND VAC PLACED BY CHARGE NURSES TODAY ON R 4/ TOE AMP SITES. ABX OINTMENT AND NON-ADHERENT APPLIED TO GREAT TOE INCISION SITE. ISSA INTACT AND DRAINING. PT DOES HAVE RETENTION ISSUES, OK PER DR MICHELLE TO LEAVE IN UNTIL TOMORROW. PT AND OT SAW PT. GOT PO PAIN MEDS Q4 HOURS AND IV FENT X1 WITH DRESSING CHANGE. AO1 TO BR GAIT BELT AND WALKER AND 50% WEIGHT BEARING ON RLE. HAD BM IN TOILET. CALL LIGHT IN REACH, WCTM
--- NOTE | 2020-07-03 04:37 | NUR ---
FINISHED YARN EXAMINER SUMMARY PT A&OX4, ABLE TO MAKE NEEDS KNOWN, PLEASANT AND COOPERATIVE TO CARE. MEDICATED FOR PAIN ON FEET PER EMAR. WOUND DRESSINGS TO FEET C/D/I. NO C/O CP, SOB, OR N&V. PT CONT ON IV ABX, NO ASE NOTED. PT CALM AND RESTED IN BED T/O SHIFT, BED AT LOWEST POSITION, CALL LIGHT WITHIN REACH.
--- NOTE | 2020-07-03 04:40 | NUR ---
ETHERNET NETWORK ARCHITECT SUMMARY PT A&OX4, ABLE TO MAKE NEEDS KNOWN. VERY PLEASANT AND COOPERATIVE TO CARE. PT MEDICATED FOR R FOOT WOUND PAIN PER EMAR. WOUND VAC DRESSING TO R FOOT C/D/I. WOUND VAC SET 125 MM/HG ORDERED. R FOOT ELEVATED WITH PILLOWS. NO C/O CP, SOB, OR N&V. CALM AND RESTED IN BED T/O SHIFT. BED AT LOWEST POSITION. CALL LIGHT WITHIN REACH.
[2020-07-03 08:31] LABS: BASOPHILS ABSOLUTE AUTO 0.01 K/mm3 (0.00-0.23); BASOPHILS PERCENT AUTO 0 % (0-2); EOSINOPHILS ABSOLUTE AUTO 0.09 K/mm3 (0.00-0.68); EOSINOPHILS PERCENT AUTO 1 % (0-6); Hematocrit 23.6 % (37.0-53.0); Hemoglobin 7.4 g/dL (13.5-17.5); IMMATURE GRAN ABSOLUTE AUTO 0.04 K/mm3 (0.00-0.10); IMMATURE GRAN PERCENT AUTO 1 % (0-1); LYMPHOCYTES ABSOLUTE AUTO 1.01 K/mm3 (0.84-5.20); LYMPHOCYTES PERCENT AUTO 16 % (21-46); MONOCYTES ABSOLUTE AUTO 0.57 K/mm3 (0.16-1.47); MONOCYTES PERCENT AUTO 9 % (4-13); Mean Corpuscular HGB 30.6 pg (26.0-34.0); Mean Corpuscular HGB Conc 31.4 g/dL (31.5-36.5); Mean Corpuscular Volume 98 fL (80-100); Mean Platelet Volume 10.7 fL (9.1-12.4); NEUTROPHILS ABSOLUTE AUTO 4.59 K/mm3 (1.96-9.15); NEUTROPHILS PERCENT AUTO 73 % (41-73); Platelet Count 85 K/mm3 (150-400); RDW Coefficient Variation 13.5 % (11.7-14.2); RDW Standard Deviation 47.8 fL (35.1-46.3); Red Blood Cell Count 2.42 M/mm3 (4.30-5.90); White Blood Cell Count 6.31 K/mm3 (4.00-11.30)
[2020-07-03 08:45] LABS: Anion Gap 7 mmol/L (6-16); Blood Urea Nitrogen 29 mg/dL (8-24); Bun/Creatinine Ratio 24.8 (12.0-20.0); CO2, Blood 24 mmol/L (21-32); Calcium, Blood 7.6 mg/dL (8.5-10.1); Chloride, Blood 109 mmol/L (98-108); Creatinine, Blood 1.17 mg/dL (0.60-1.20); Glomerular Filtration Rate >60 (60-); Glucose, Blood 88 mg/dL (70-99); Potassium, Blood 4.1 mmol/L (3.5-5.5); Sodium, Blood 140 mmol/L (136-145)
[2020-07-03 12:17] LABS: Vancomycin, Trough 17.4 ug/mL (5.0-10.0)
--- NOTE | 2020-07-03 16:44 | NUR ---
ALERT. ORIENTED. WOUND VAC IN PLACE. UNLABORED RESPIRATIONS. PAIN MEDS MAKE PAIN TOLERABLE. AFRAID TO PUT ANY WEIGHT ON RT FOOT EVEN WITH P.T. IV PATENT. ABLE TO MAKE NEEDS KNOWN. WCTM
--- NOTE | 2020-07-04 06:47 | NUR ---
07/04/20 0615 AWAKENED FOR AM MEDS. HE SAID HE SLEPT WELL LAST NIGHT. MEDICATED TWICE FOR PAIN IN RT FOOT. STATES PAIN "COMES AND GOES". WOUND VAC INTACT TO RT FOOT. LUIS MANUEL PATENT
--- NOTE | 2020-07-04 08:00 | NUR ---
PT PLEASANT THIS MORNING. PAIN MINIMAL AND FINE AT THIS TIME. WILL CALL FOR MEDS WHEN DESIRE. WOUND VAC 0PPERATIONAL AND FUNCTIONAL. H/R REG, NO MURMER NOTED, NO TELOE. LUNGS CLEAR, RESP EASY, UNLABORED. PT TALKATIVE. NO DISTRESS NOTED. ON R.A. BT HYPO. PT STATES NO BM 4 DAYS. BUT MAY BE ABLE TODAY. DISCUSSED PAIN MEDS OFTEN SLOWING BOWEL MOTILITY. STATES WAS NOT AWARE. WILL TAKE LAXATIVES DIRECTED TODAY. REFUSED BROWN COW DRINK. VOIDS ISSA CATH, YELLOW FLUID DRAINING. BED IN LOW POSITION, CALL LITE IN REACH, CALLS APPROP
[2020-07-04 08:01] LABS: BASOPHILS PERCENT AUTO 0 % (0-2); EOSINOPHILS ABSOLUTE AUTO 0.11 K/mm3 (0.00-0.68); EOSINOPHILS PERCENT AUTO 2 % (0-6); Hematocrit 22.7 % (37.0-53.0); Hemoglobin 7.3 g/dL (13.5-17.5); IMMATURE GRAN ABSOLUTE AUTO 0.04 K/mm3 (0.00-0.10); IMMATURE GRAN PERCENT AUTO 1 % (0-1); LYMPHOCYTES PERCENT AUTO 16 % (21-46); MONOCYTES ABSOLUTE AUTO 0.58 K/mm3 (0.16-1.47); MONOCYTES PERCENT AUTO 10 % (4-13); Mean Corpuscular HGB 31.2 pg (26.0-34.0); Mean Corpuscular HGB Conc 32.2 g/dL (31.5-36.5); Mean Corpuscular Volume 97 fL (80-100); Mean Platelet Volume 10.8 fL (9.1-12.4); NEUTROPHILS ABSOLUTE AUTO 4.07 K/mm3 (1.96-9.15); NEUTROPHILS PERCENT AUTO 71 % (41-73); Platelet Count 90 K/mm3 (150-400); RDW Coefficient Variation 13.6 % (11.7-14.2); RDW Standard Deviation 47.6 fL (35.1-46.3); Red Blood Cell Count 2.34 M/mm3 (4.30-5.90)
[2020-07-04 08:22] LABS: Anion Gap 8 mmol/L (6-16); Blood Urea Nitrogen 26 mg/dL (8-24); Bun/Creatinine Ratio 26.1 (12.0-20.0); CO2, Blood 21 mmol/L (21-32); Calcium, Blood 7.7 mg/dL (8.5-10.1); Chloride, Blood 109 mmol/L (98-108); Glomerular Filtration Rate >60 (60-); Glucose, Blood 96 mg/dL (70-99); Sodium, Blood 138 mmol/L (136-145)
--- NOTE | 2020-07-04 18:21 | NUR ---
PT QUITE PLEASANT TODAY. PAIN MANAGED WITH AVAIL MEDS. GOT TO BSC FOR BOWEL MOVEMENT. PT DID WELL TRANSFERRING. NOW SITTING AT EDGE OF BED EATING DINNER. STATES PAIN MOSTLY OKAY. SOME SHARP NEUROPATHY JOLTS. THEN OKAY. FOOT WAS REWRAPPED TODAY. WOUND CHANGED. BED IN LOW POSITION, CALL LITE IN REACH, CALLS APPROP
--- NOTE | 2020-07-05 06:46 | NUR ---
07/05/20 0610 CHEERFUL AND JOKING THIS AM. MEDICATED TWICE FOR RT FOOT PAIN. ANXIOUS TO GET LUIS MANUEL CATH USHA'D THIS AM SO HE CAN BE DISCHARGED HOME. NO ORDER FROM MD YET TO USHA ISSA. VITALS STABLE AND SLEPT WELL ON AND OFF. ISSA WITH CLEAR,YELLOW URINE.
[2020-07-05 08:21] LABS: BASOPHILS ABSOLUTE AUTO 0.01 K/mm3 (0.00-0.23); BASOPHILS PERCENT AUTO 0 % (0-2); EOSINOPHILS ABSOLUTE AUTO 0.09 K/mm3 (0.00-0.68); EOSINOPHILS PERCENT AUTO 2 % (0-6); Hemoglobin 7.8 g/dL (13.5-17.5); IMMATURE GRAN ABSOLUTE AUTO 0.03 K/mm3 (0.00-0.10); IMMATURE GRAN PERCENT AUTO 1 % (0-1); LYMPHOCYTES ABSOLUTE AUTO 0.96 K/mm3 (0.84-5.20); LYMPHOCYTES PERCENT AUTO 17 % (21-46); MONOCYTES ABSOLUTE AUTO 0.53 K/mm3 (0.16-1.47); MONOCYTES PERCENT AUTO 9 % (4-13); Mean Corpuscular HGB 31.3 pg (26.0-34.0); Mean Corpuscular HGB Conc 32.5 g/dL (31.5-36.5); Mean Corpuscular Volume 96 fL (80-100); Mean Platelet Volume 10.8 fL (9.1-12.4); NEUTROPHILS ABSOLUTE AUTO 4.12 K/mm3 (1.96-9.15); NEUTROPHILS PERCENT AUTO 72 % (41-73); Platelet Count 94 K/mm3 (150-400); RDW Coefficient Variation 13.4 % (11.7-14.2); RDW Standard Deviation 47.9 fL (35.1-46.3); Red Blood Cell Count 2.49 M/mm3 (4.30-5.90); White Blood Cell Count 5.74 K/mm3 (4.00-11.30)
[2020-07-05 08:42] LABS: Anion Gap 6 mmol/L (6-16); Blood Urea Nitrogen 24 mg/dL (8-24); Bun/Creatinine Ratio 23.1 (12.0-20.0); CO2, Blood 24 mmol/L (21-32); Calcium, Blood 7.9 mg/dL (8.5-10.1); Chloride, Blood 107 mmol/L (98-108); Creatinine, Blood 1.04 mg/dL (0.60-1.20); Glomerular Filtration Rate >60 (60-); Glucose, Blood 92 mg/dL (70-99); Potassium, Blood 4.2 mmol/L (3.5-5.5); Sodium, Blood 137 mmol/L (136-145)
[2020-07-05] MEDS ORDERED: HYDROCODONE-AC1 EAC7 PO (12:44)
--- NOTE | 2020-07-05 16:29 | NUR ---
EQUIPMENT DELIVERY OF FOUR WHEELED WALKER DECLINED BY MR MICHAEL, HE WANTS THE KIND WITH THE SEAT. HE WAS INFORMED THAT INSURANCE DOESN'T PAY FOR THIS. HE UNDERSTANDS, STATES HE WILL USE HIS BROTHERS
--- NOTE | 2020-07-05 16:30 | NUR ---
PT HASN'T VOIDED SINCE CATHETER REMOVAL AT 10AM. BLADDER SCAN AT 1430 SHOWED 167. PER PT, HE IS NEVER ABLE TO VOID IN HOSPITAL, ONLY AT HOME. CALLED DR AVALOS ([facility]) TO DISCUSS, SHE STATES IT IS OK TO DISCHARGE PT WITHOUT URINATING
--- NOTE | 2020-07-05 18:31 | NUR ---
DISCHARGE SUMMARY PT LEFT AT 545PM BY WC TO GO TO HIS BROTHER'S HOUSE FOR A FEW DAYS. HOSPITAL WOUND VAC CHANGED OVER TO THE ONE DELIVERED TODAY FOR HOME USE. PT DECLINED WALKER THAT WAS DELIVERED (SEE NOTE). PT HADN'T VOIDED YET (SEE PRIOR NOTE). PIV REMOVED. NO NEW MEDS TO FAX TO PHARMACY, PT WAS GIVEN PHSYICAL SCRIPT OF OXY/APAP, 15 PILL SUPPLY. COPY OF SCRIPT IN CHART. PAPERWORK REVIEWED. F/U FOR PT MADE AT [facility] OFFICE , PT AWARE OF TIME AND DATE. NEW PCP DR HIGH'S OFFICE WAS CALLED, THEY WILL CALL PT TO SCHEDULE.
== END 2020-07-05 17:32 | disposition home or self-care (01) | DRG 239 ==
LOC: ER 08:36 → MEDS 08:37
PROVIDERS: Family Medicine; Internal Medicine; Pharmacist; Physician Assistant; Podiatrist; ADMIT Internal Medicine
PROC: 0Y6X0Z0 Detachment at Right 5th Toe, Complete, Open Approach (ICD-10-PCS; 2020-06-29)
PROC: 0Y6M0ZD Detachment at Right Foot, Partial 4th Ray, Open Approach (ICD-10-PCS; 2020-06-29)
PROC: 0Y6P0Z1 Detachment at Right 1st Toe, High, Open Approach (ICD-10-PCS; principal; 2020-06-29 15:00)
DX: E11.52 Type 2 diabetes mellitus with diabetic peripheral angiopathy with gangrene (principal); I21.A1 Myocardial infarction type 2; M86.171 Other acute osteomyelitis, right ankle and foot; E11.621 Type 2 diabetes mellitus with foot ulcer; Z79.82 Long term (current) use of aspirin; Z79.01 Long term (current) use of anticoagulants; E11.22 Type 2 diabetes mellitus with diabetic chronic kidney disease; K21.9 Gastro-esophageal reflux disease without esophagitis; Z89.412 Acquired absence of left great toe; Z89.411 Acquired absence of right great toe; Z89.421 Acquired absence of other right toe(s); Z87.891 Personal history of nicotine dependence; Z66 Do not resuscitate; F32.9 Major depressive disorder, single episode, unspecified; D63.1 Anemia in chronic kidney disease; L97.514 Non-pressure chronic ulcer of other part of right foot with necrosis of bone
CPT/HCPCS: 36415; 51701; 73630; 73718; 80048; 80053; 80202; 82330; 82565; 82947; 83605; 83735; 84100; 84145; 84484; 85014; 85018; 85025; 85027; 85610; 85651; 85730; 86140; 86850; 86900; 86901; 87040; 88305; 88311; 93005; 93010; 96365; 96366; 96368; 96372; 96375; 97116; 97162; 97166; 97530; 97535; 99284-25; A9270; G0378; J0360; J1200; J1650; J2370; J2704; J3010; J3370; J3475; J7050; J7120

== ENCOUNTER 2020-07-08 16:19 | Inpatient (IN) | payer OTHER ==
[~2020-07-08] VITALS: Ht 172.7 cm; Wt 83.2 kg
[~2020-07-08 16:19] MED LIST changes: +ATORVASTATIN CA20 MG PO; +HYDROCODONE-AC1 EAC7 PO
[2020-07-08 17:21] LABS: BASOPHILS ABSOLUTE AUTO 0.02 K/mm3 (0.00-0.23); BASOPHILS PERCENT AUTO 0 % (0-2); EOSINOPHILS ABSOLUTE AUTO 0.04 K/mm3 (0.00-0.68); EOSINOPHILS PERCENT AUTO 1 % (0-6); Hematocrit 28.4 % (37.0-53.0); IMMATURE GRAN ABSOLUTE AUTO 0.02 K/mm3 (0.00-0.10); IMMATURE GRAN PERCENT AUTO 0 % (0-1); LYMPHOCYTES ABSOLUTE AUTO 0.68 K/mm3 (0.84-5.20); LYMPHOCYTES PERCENT AUTO 13 % (21-46); MONOCYTES PERCENT AUTO 11 % (4-13); Mean Corpuscular HGB 30.1 pg (26.0-34.0); Mean Corpuscular HGB Conc 31.7 g/dL (31.5-36.5); Mean Corpuscular Volume 95 fL (80-100); Mean Platelet Volume 10.5 fL (9.1-12.4); NEUTROPHILS ABSOLUTE AUTO 4.03 K/mm3 (1.96-9.15); NEUTROPHILS PERCENT AUTO 75 % (41-73); Platelet Count 156 K/mm3 (150-400); RDW Coefficient Variation 13.9 % (11.7-14.2); RDW Standard Deviation 48.2 fL (35.1-46.3); Red Blood Cell Count 2.99 M/mm3 (4.30-5.90); White Blood Cell Count 5.39 K/mm3 (4.00-11.30)
[2020-07-08 17:36] LABS: Albumin, Blood 2.8 g/dL (3.4-5.0); Albumin/Globulin Ratio 0.7 (0.8-1.8); Bilirubin, Total 0.4 mg/dL (0.1-1.0); Calcium, Blood 8.8 mg/dL (8.5-10.1); Creatinine, Blood 1.37 mg/dL (0.60-1.20); Globulin, Blood 4.2 g/dL (2.2-4.0)
--- NOTE | 2020-07-09 02:33 | NUR ---
PT ADMITTED TO ROOM 210 @ ABOUT O030. PT IS A/O X4. USED SLIDER TO TRANSFER TO BED FROM [facility]. CALL LIGHT GIVEN AND REVIEWED WITH PT. ISSA IN PLACE, PATENT, DRAINING YELLOW URINE. DRESSING TO R FOOT CHANGED, PHOTOS TAKEN AND IN CHART. PT DID NOT WANT SOCKS ON L FOOT REMOVED FOR ASSESSMENT AT THIS TIME. PT INSTRUCTED ON NPO STATUS FOR SURGERY TODAY. REPORTS PAIN IS MANAGED AT THIS TIME. RESTING IN BED WITH CALL LIGHT IN PLACE AT THIS TIME.
[2020-07-09 02:52] LABS: Influenza A, PCR Negative (NEGATIVE); Influenza B, PCR Negative (NEGATIVE); Resp Syncytial Virus, PCR Negative (NEGATIVE); SARS-Cov-2 (COVID-19) PCR, MMC Negative (NEGATIVE)
[2020-07-09] MEDS ORDERED: HYDR1TAB94 PO ×2 (04:36→04:38)
--- NOTE | 2020-07-09 05:10 | NUR ---
SHIFT SUMMARY PT ADMITTED THIS SHIFT, SEE PREVIOUS NOTE. ISSA PATENT. LOW URINE OUTPUT SINCE ADMIT, HOWEVER ED REPORTED EMPTYING 500ML OUT OF ISSA BEFORE PT WAS BROUGHT UP TO SURGICAL FLOOR. DRESSING TO R FOOT CHANGED, PHOTOS IN CHART. PT REPORTED PAIN 10/, HOSPITALIST CALLED AND NORCO STARTED AND GIVEN. PT RESTING IN BED AT THIS TIME. HAS BEEN NPO SINCE MIDNIGIHT EXCEPT FOR PAIN MEDS.
[2020-07-09 07:34] LABS: Source, Urine Catheter
[2020-07-09 07:37] LABS: Appearance, Urine Hazy (Clear); Bilirubin, Urine Neg (Neg); Blood, Urine 2+ (Neg); Color, Urine Yellow (P-Yellow); Glucose Qualitative, Urine Neg (Neg); Ketones, Urine 1+ (Neg); Leukocyte Esterase, Urine 3+ (Neg); Nitrite, Urine Neg (Neg); Protein, Urine 2+ (Neg); Urobilinogen, Urine NORM (Normal)
[2020-07-09 07:48] LABS: Bacteria Mod /hpf; Mucus Mod (0-Heavy); Squamous Epithelial Cells Few /hpf (Few); White Blood Cells, Urine 50-100 /hpf (0-5)
[2020-07-09 10:32] LABS: International Normalized Ratio 1.27; Prothrombin Time Results 13.4 Sec (9.7-11.5)
--- NOTE | 2020-07-09 17:07 | NUR ---
SHIFT SUMMARY PT A&OX4, VSS, PAIN MANAGED WITH 10 MG NORCO, TORI PO, ISSA PATENT & DRAINING YELLOW URINE, STAT LOCK ON, OFF FLOOR. PLAN FOR O.R. AT 0800, NPO AT MIDNIGHT. WILL REPORT TO ONCOMING NOC RN.
--- NOTE | 2020-07-09 23:09 | NUR ---
DECLINING CBG AT THIS TIME. AGREEABLE TO CBG AT 0600. DOES NOT CHECK GLUCOSE AT HOME, REPORTS GLUCOSE IS DIET CONTROLLED.
--- NOTE | 2020-07-10 05:04 | NUR ---
SHIFT SUMMARY PT IS A/O X4. AWAITING SURGERY TODAY; HAS BEEN NPO SINCE MIDNIGHT EXCEPT FOR PAIN PILLS WITH A SIP OF WATER. PAIN MANAGED WITH NORCO X2 PER ORDERS. ISSA IN PLACE, PATENT, STAT LOCK ON L LEG. PT HAS EXPRESSED ANXIETY REGARDING AMPUTATION; REASSURANCE PROVIDED. PT DECLINED MIDNIGHT CBG. RESTING IN BED AT THIS TIME WITH CALL LIGHT IN REACH.
--- NOTE | 2020-07-10 16:44 | NUR ---
SHIFT SUMMARY PT A&OX4, VSS, 2LNC, S/P L BKA, DRESSING CDI, BLE ELEVATED. PAIN TREATED WITH 10 MG NORCO AND 25 MCGS FENT. TORI PO, DENIES N&V. ISSA PATENT & DRAINING YELLOW URINE, STAT LOCK ON, OFF FLOOR. WILL REPORT TO ONCOMING NOC RN.
[2020-07-10 21:02] LABS: Creatinine, Blood 1.23 mg/dL (0.60-1.20)
[2020-07-11 04:56] LABS: BASOPHILS ABSOLUTE AUTO 0.01 K/mm3 (0.00-0.23); BASOPHILS PERCENT AUTO 0 % (0-2); EOSINOPHILS PERCENT AUTO 0 % (0-6); Hematocrit 25.2 % (37.0-53.0); Hemoglobin 7.8 g/dL (13.5-17.5); IMMATURE GRAN ABSOLUTE AUTO 0.05 K/mm3 (0.00-0.10); IMMATURE GRAN PERCENT AUTO 1 % (0-1); LYMPHOCYTES ABSOLUTE AUTO 0.52 K/mm3 (0.84-5.20); LYMPHOCYTES PERCENT AUTO 9 % (21-46); MONOCYTES ABSOLUTE AUTO 0.34 K/mm3 (0.16-1.47); MONOCYTES PERCENT AUTO 6 % (4-13); Mean Corpuscular HGB 29.8 pg (26.0-34.0); Mean Corpuscular Volume 96 fL (80-100); NEUTROPHILS ABSOLUTE AUTO 4.78 K/mm3 (1.96-9.15); NEUTROPHILS PERCENT AUTO 84 % (41-73); Platelet Count 144 K/mm3 (150-400); RDW Coefficient Variation 13.6 % (11.7-14.2); RDW Standard Deviation 47.7 fL (35.1-46.3); Red Blood Cell Count 2.62 M/mm3 (4.30-5.90)
--- NOTE | 2020-07-11 06:12 | NUR ---
SHIFT SUMMARY PT HAS BEEN A/O, CONFUSED/FORGETFUL AT TIMES OVERNIGHT. BED ALARM ON. PT HAS C/O PAIN AND HAS BEEN MEDICATED WITH NORCO AND ATIVAN PER ORDERS. THIS SEEMS TO HELP WELL WITH PAIN AND PT HAS BEEN ABLE TO REST DURING THE NIGHT. ISSA PATENT, DRAINING YELLOW URINE. STUMP SOCK CDI TO RLE, LEG ELEVATED ON PILLOWS OVERNIGHT. PT ELEVATED THIS AM WITH MULTIPLE CHECKS; GIVEN AM BP MED EARLY. WCTM. BIOX IN PLACE OVERNIGHT; O2 HAS BEEN ABOVE 92% ON RA. TOLERATING PO INTAKE W/O NAUSEA. PT RESTING IN BED AT THIS TIME WITH CALL LIGHT IN REACH.
--- NOTE | 2020-07-11 13:01 | NUR ---
Patient is sitting up in bed and alert. Patient admits to recent pain medications and that he is "not all with it." I confirm that he was a little confused (mixing up words and stories) but all and all able to carry on a meaninful conversation. Patient tells me about the intense pain and that it is far worse than his other amputations. Patient shares with me that he is struggling with negative thoughts (bad memories, his disappointment over having yet another amputation and fears about the future) and states that these thoughts need to "go into the trash can." We discuss strategies for dwelling on better things and the help that prayer and meditation can be for dealing with our thoughts. I provide anxiety containment, therapeutic listening and prayer. Patient responds well and shows signs of increased peace. I will continue to remain available to patient and family.
--- NOTE | 2020-07-11 17:11 | NUR ---
SHIFT SUMMARY ALTHOUGH PT WAS ANXIOUS ABOUT IT, HE DID WORK WITH BOTH PT & OT. AFTER SESSION WITH OT, IV BREAKTHRU MEDS GIVEN FOR A BURNING PAIN IN R LEG. R STUMP HAS REMAIN ELEVATED ON 1-2 PILLOW EXCEPT WHEN WORKING WITH THERAPIES. EATING, & DRINKING WELL. REQUESTED BOWEL CARE & NEW ORDER RECEIVED AT THIS TIME. OPEN TO DC TO SNF WHEN STABLE.
--- NOTE | 2020-07-12 04:05 | NUR ---
SHIFT SUMMARY: PT S/P R BKA. STUMP SOCK IN PLACE AND APPEARS C/D/I. EXTREMITY ELEVATED ON SEVERAL PILLOWS. PT GIVEN ICE PACK FOR COMFORT. BEING MEDICATED WITH 2 NORCO PER EMAR. RATING PAIN 10/10. PT A&O IN BEGINNING OF SHIFT BUT BECOMING INCREASINGLY CONFUSED DURING NIGHT. PT ATTEMPTED TO GET OUT OF BED ONCE. APPEARED ANXIOUS DURING THIS TIME AND MEDICATED WITH ATIVAN PER EMAR WHICH WAS EFFECTIVE. PT TOLERATING MEDS WHOLE WITH WATER. ABLE TO SIT UP AND DANGLE ON EDGE OF BED INDEPENDENTLY WITH SBA. ISSA CATHETER IN PLACE AND DRAINING TO GRAVITY. SYSTOLIC BP IN 180'S THIS MORNING WHILE PT RESTING.
[2020-07-12 04:51] LABS: BASOPHILS PERCENT AUTO 0 % (0-2); EOSINOPHILS PERCENT AUTO 0 % (0-6); Hematocrit 20.6 % (37.0-53.0); Hemoglobin 6.7 g/dL (13.5-17.5); IMMATURE GRAN ABSOLUTE AUTO 0.07 K/mm3 (0.00-0.10); IMMATURE GRAN PERCENT AUTO 1 % (0-1); LYMPHOCYTES ABSOLUTE AUTO 0.88 K/mm3 (0.84-5.20); LYMPHOCYTES PERCENT AUTO 13 % (21-46); MONOCYTES ABSOLUTE AUTO 0.62 K/mm3 (0.16-1.47); MONOCYTES PERCENT AUTO 9 % (4-13); Mean Corpuscular HGB 30.3 pg (26.0-34.0); Mean Corpuscular HGB Conc 32.5 g/dL (31.5-36.5); Mean Corpuscular Volume 93 fL (80-100); Mean Platelet Volume 9.8 fL (9.1-12.4); NEUTROPHILS ABSOLUTE AUTO 5.02 K/mm3 (1.96-9.15); NEUTROPHILS PERCENT AUTO 76 % (41-73); Platelet Count 142 K/mm3 (150-400); RDW Coefficient Variation 13.8 % (11.7-14.2); RDW Standard Deviation 46.7 fL (35.1-46.3); Red Blood Cell Count 2.21 M/mm3 (4.30-5.90); White Blood Cell Count 6.59 K/mm3 (4.00-11.30)
[2020-07-12 05:15] LABS: Anion Gap 8 mmol/L (6-16); Blood Urea Nitrogen 33 mg/dL (8-24); Bun/Creatinine Ratio 28.4 (12.0-20.0); CO2, Blood 22 mmol/L (21-32); Chloride, Blood 109 mmol/L (98-108); Creatinine, Blood 1.16 mg/dL (0.60-1.20); Glomerular Filtration Rate >60 (60-); Glucose, Blood 104 mg/dL (70-99); Potassium, Blood 4.6 mmol/L (3.5-5.5); Sodium, Blood 139 mmol/L (136-145)
--- NOTE | 2020-07-12 14:59 | NUR ---
Patient immediately tells me about the wild effect that his pain medications had on him last night and how he thought everyone was partying and trying to kill him. He also states that when they back off on the pain medications then his pain levels go off the charts. Patient then talks openly about how his 's suicide and how the scene when he discovered her has haunted him. Patient also shares some of his questions of a theological nature which led to great dialogue. I provide therapeutic listening, grief support, crisis managment, pastoral hiv counselor and prayer. Patient responds well and shows signs of catharsis and improved peace. I will continue to remain available to patient and family
--- NOTE | 2020-07-12 17:55 | NUR ---
SHIFT SUMMARY PT WAS ABLE TO GET UP TO BSC W/ STAFF ASSIST. MODERATE ASSIST W/ 2 PERSON. FIRST TIME OUT OF BED. DECLINED UP TO RECLINER DUE TO PAIN. DID REQUIRE x 1 IV PAIN MEDS FOR BREAKTHRU. CONFUSION CLEARED MIDDAY BUT STILL SAYS ODD COMMENTS AT TIMES.
[2020-07-12 20:34] LABS: Vancomycin, Trough 20.6 ug/mL (5.0-10.0)
[2020-07-13 04:28] LABS: BASOPHILS ABSOLUTE AUTO 0.03 K/mm3 (0.00-0.23); BASOPHILS PERCENT AUTO 0 % (0-2); EOSINOPHILS ABSOLUTE AUTO 0.07 K/mm3 (0.00-0.68); EOSINOPHILS PERCENT AUTO 1 % (0-6); Hematocrit 29.6 % (37.0-53.0); Hemoglobin 9.3 g/dL (13.5-17.5); IMMATURE GRAN ABSOLUTE AUTO 0.14 K/mm3 (0.00-0.10); IMMATURE GRAN PERCENT AUTO 1 % (0-1); LYMPHOCYTES ABSOLUTE AUTO 1.97 K/mm3 (0.84-5.20); LYMPHOCYTES PERCENT AUTO 20 % (21-46); MONOCYTES ABSOLUTE AUTO 0.87 K/mm3 (0.16-1.47); MONOCYTES PERCENT AUTO 9 % (4-13); Mean Corpuscular HGB 29.8 pg (26.0-34.0); Mean Corpuscular HGB Conc 31.4 g/dL (31.5-36.5); Mean Corpuscular Volume 95 fL (80-100); Mean Platelet Volume 9.8 fL (9.1-12.4); NEUTROPHILS PERCENT AUTO 68 % (41-73); NRBC ABSOLUTE 0.03 K/mm3 (0.00-0.02); NRBC Auto 0.3 /100 WBC (0.0-0.2); Platelet Count 201 K/mm3 (150-400); RDW Coefficient Variation 14.2 % (11.7-14.2); RDW Standard Deviation 48.6 fL (35.1-46.3); Red Blood Cell Count 3.12 M/mm3 (4.30-5.90); White Blood Cell Count 9.68 K/mm3 (4.00-11.30)
[2020-07-13 04:45] LABS: Anion Gap 8 mmol/L (6-16); Blood Urea Nitrogen 25 mg/dL (8-24); Bun/Creatinine Ratio 22.5 (12.0-20.0); CO2, Blood 25 mmol/L (21-32); Calcium, Blood 8.4 mg/dL (8.5-10.1); Chloride, Blood 106 mmol/L (98-108); Creatinine, Blood 1.11 mg/dL (0.60-1.20); Glomerular Filtration Rate >60 (60-); Glucose, Blood 99 mg/dL (70-99); Potassium, Blood 4.2 mmol/L (3.5-5.5); Sodium, Blood 139 mmol/L (136-145); Vancomycin, Random 17.9 ug/mL
--- NOTE | 2020-07-13 05:27 | NUR ---
SHIFT SUMMARY: PT S/P R BKA. STUMP SOCK C/D/I WITHOUT VISIBLE DRAINAGE. EXT ELEVATED ON MULTIPLE PILLOWS THROUGHOUT NIGHT. PT NOT CONFUSED THIS SHIFT. APPEARS TO BE A&O, HOWEVER OCC NONSENSICAL DURING CONVERSATION. PT GETTING TO BSC USING FWW+GB WITH 2 MAX ASSIST. VOIDING WELL. HAD A BM THIS MORNING. PT CONTINUES TO REPORT PAIN 10/10. REPORTS IT IS AN INTERMITTENT SHARP PAIN. PT BEING MEDICATED WITH 2 NORCO PER EMAR. GIVEN MELATONIN AND FLEXERIL BEFORE BEDTIME. PT ABLE TO GET SOME SLEEP OVER NIGHT.
--- NOTE | 2020-07-13 14:40 | NUR ---
PT FELT NAUSEATED AFTER WORKING WITH OCC THERAPIST. PT ABLE TO SIT AT EOB WITH 2 PERSON ASSIST. CROW ADMINSTERED.
--- NOTE | 2020-07-13 17:07 | NUR ---
SHIFT SUMMARY PT AOX4. S/P RIGHT BKA. NO SIGNS OF CONFUSION TODAY. PT REPORTS INTERMITTENT SHARP PAIN ON RLE. PAIN MANAGED WITH ICE, ELEVATION, 2 NORCO AND 2 DOSE OF 0.5MG DILAUDID. DRESSING CHANGED TODAY W/ DR. DOMINGUEZ'S PHYSICIAN'S BIOMEDICAL ENGINEERING SUPERVISOR AND DENTAL SERVICES DIRECTOR, PHUONG. PT WAS UP IN CHAIR TODAY. DENIES TO WORK WITH P.THERAPIST, BUT HE WAS ABLE TO WORK WITH O.T. PT ALSO EXPERIENCE HIGH BP THIS MORNING R/T TO PAIN. PAIN MED WAS ADMINISTERED, VIA IV AND PO AND AFTER MORNING MEDS PASSED, BLOOD PRESSURE IMPROVED. ANTICIPATE DISCHARGE ANKUR FOR SNF REHAB TOMORROW. CALL LIGHT WITHIN REACH.
--- NOTE | 2020-07-14 03:01 | NUR ---
SHIFT SUMMARY: POD 4 RIGHT BKA PATIENT IS ALERT AND ORIENTED X2-3 WHILE AWAKE. HE SEEMS TO BE CONFUSED AND FORGETFUL. BED ALARM IS ON. PAIN IS MANAGED WITH IV DILAUDID AND 2 NORCO THIS SHIFT. VITAL SIGNS ARE WNL AND ON RA. HE HAS BEEN SLEEPING MAJORITY OF THE SHIFT BUT IS EASILY AROUSABLE. HE CALLS APPROPRIATELY. HE HAS IV FLUIDS AND ABX RUNNING. HIS RIGHT STUMP IS ELEVATED ON PILLOWS THROUGHOUT SHIFT. CALL LIGHT WITHIN REACH. THE PLAN IS TO POSSIBLY BE DISCHARGED FOR SNF TODAY.
--- NOTE | 2020-07-14 04:30 | NUR ---
ADVANCED PRACTICE NURSE PSYCHOTHERAPIST CHECKED PATIENT'S BP AND IT WAS SIGNIFICANTLY HIGH. PATIENT DENIED SOB, CHEST PAIN, OR PALPATATIONS. HE WAS GIVEN HIS HYDRALAZINE EARLY TO HOPEFULLY DECREASE BP. WILL CHECK HIS BP IN ABOUT 30-60 MINS. CALL LIGHT IS WITHIN REACH. PATIENT IS RESTING COMFORTABLY IN BED.
--- NOTE | 2020-07-14 05:52 | NUR ---
RE-CHECKED PATIENT'S BP AT 0500 THIS MORNING AFTER GIVING HIS HYDRALAZINE ABOUT 30-45 MINS PRIOR. HIS BP WAS 168/66 WHEN CHECKED. WHICH ACCORDING TO PAST RECORDS IS MORE IN HIS RANGES THAT HE HAS BEEN IN. PATIENT STILL DENIED SOB, CHEST PAIN, OR PALPATATIONS. HE IS CURRENTLY LAYING IN BED WITH BOTH FEET RAISED ON PILLOWS. WILL CONTINUE TO MONITOR AND REPORT INFORMATION TO DAYSHIFT RN.
[2020-07-14 06:15] LABS: BASOPHILS ABSOLUTE AUTO 0.03 K/mm3 (0.00-0.23); BASOPHILS PERCENT AUTO 0 % (0-2); EOSINOPHILS ABSOLUTE AUTO 0.16 K/mm3 (0.00-0.68); EOSINOPHILS PERCENT AUTO 2 % (0-6); Hematocrit 25.9 % (37.0-53.0); Hemoglobin 8.2 g/dL (13.5-17.5); IMMATURE GRAN PERCENT AUTO 2 % (0-1); LYMPHOCYTES ABSOLUTE AUTO 1.41 K/mm3 (0.84-5.20); LYMPHOCYTES PERCENT AUTO 21 % (21-46); MONOCYTES ABSOLUTE AUTO 0.63 K/mm3 (0.16-1.47); MONOCYTES PERCENT AUTO 9 % (4-13); Mean Corpuscular HGB 30.3 pg (26.0-34.0); Mean Corpuscular HGB Conc 31.7 g/dL (31.5-36.5); Mean Corpuscular Volume 96 fL (80-100); Mean Platelet Volume 10.4 fL (9.1-12.4); NEUTROPHILS ABSOLUTE AUTO 4.42 K/mm3 (1.96-9.15); NEUTROPHILS PERCENT AUTO 66 % (41-73); Platelet Count 157 K/mm3 (150-400); RDW Coefficient Variation 14.3 % (11.7-14.2); RDW Standard Deviation 49.4 fL (35.1-46.3); Red Blood Cell Count 2.71 M/mm3 (4.30-5.90); White Blood Cell Count 6.75 K/mm3 (4.00-11.30)
--- NOTE | 2020-07-14 10:48 | NUR ---
Patient immediately shares about the contiued mejia of balancing his horrific pain and keeping his mind clear enough to function. Patient is able to converse more easily today then last visit and talks about the quality of the staff in the hospital and their kindness toward him. Patient shares personal stories focused on the good memories and some on the deep pain he has experience emotionally. I reinforce helpful attitudes and practices and provide therapeutic listening, grief support, companionship and prayer. Patient responds well and shows signs of catharsis and an elevated mood. I will continue to remain available to patient and family.
--- NOTE | 2020-07-14 17:56 | NUR ---
summary pt forgetful, requires reminders to keep right leg elevated on pillows anfd to keep knee straight. per long term acute care registered nurse patient will be reviewed by [facility] in the morning for transfer there for rehab. pt reports pain has lessened this evening as compred to this am and that pain is currently adequately controlled
[2020-07-15 05:29] LABS: Vancomycin, Trough 17.9 ug/mL (5.0-10.0)
--- NOTE | 2020-07-15 06:24 | NUR ---
SHIFT SUMMARY LYING IN SEMI FOWLERS WITH EYES OPEN, SLEPT WELL. MAX ASSIST TO BSC FOR BM, TOLERATED WELL. PRN PAIN MEDS ADMINISTERED X3 FOR PO AND X1 FOR IV PER PT REQUEST. RIGHT BKA ELEVATED ON PILLOWS, NO EDEMA NOTED. NO SIGNIFICANT CHANGES NOTED THIS SHIFT. HAS BEEN PLEASANT AND COOPERATIVE WITH CARE THIS SHIFT. DENIES FURTHER NEEDS OR WANTS AT THIS TIME. SAFETY MEASURES IN PLACE. WILL CONTINUE TO MOITOR UNTIL HABD OFF TO ONCOMING SHIFY USING SBAR.
[2020-07-15 08:19] LABS: BASOPHILS ABSOLUTE AUTO 0.03 K/mm3 (0.00-0.23); BASOPHILS PERCENT AUTO 1 % (0-2); EOSINOPHILS ABSOLUTE AUTO 0.15 K/mm3 (0.00-0.68); EOSINOPHILS PERCENT AUTO 3 % (0-6); Hematocrit 24.8 % (37.0-53.0); Hemoglobin 7.9 g/dL (13.5-17.5); IMMATURE GRAN PERCENT AUTO 2 % (0-1); LYMPHOCYTES ABSOLUTE AUTO 1.22 K/mm3 (0.84-5.20); LYMPHOCYTES PERCENT AUTO 22 % (21-46); MONOCYTES ABSOLUTE AUTO 0.64 K/mm3 (0.16-1.47); MONOCYTES PERCENT AUTO 12 % (4-13); Mean Corpuscular HGB 30.5 pg (26.0-34.0); Mean Corpuscular HGB Conc 31.9 g/dL (31.5-36.5); Mean Corpuscular Volume 96 fL (80-100); Mean Platelet Volume 10.5 fL (9.1-12.4); NEUTROPHILS ABSOLUTE AUTO 3.44 K/mm3 (1.96-9.15); NEUTROPHILS PERCENT AUTO 62 % (41-73); Platelet Count 163 K/mm3 (150-400); RDW Coefficient Variation 14.6 % (11.7-14.2); Red Blood Cell Count 2.59 M/mm3 (4.30-5.90); White Blood Cell Count 5.58 K/mm3 (4.00-11.30)
--- NOTE | 2020-07-15 11:56 | NUR ---
REPORT PHONED TO DUANE AT [facility]. COVID TEST PERFORMED. TRANSPORT TO [facility] ARRANGED TOR 1400 TODAY. PT IS AGREEABLE TO TRANSFER TO [facility]
[2020-07-15 12:41] LABS: Influenza A, PCR NEGATIVE (NEGATIVE); Influenza B, PCR NEGATIVE (NEGATIVE); Resp Syncytial Virus, PCR NEGATIVE (NEGATIVE); SARS-Cov-2 (COVID-19) PCR, MMC NEGATIVE (NEGATIVE)
--- NOTE | 2020-07-15 14:29 | NUR ---
DISCHARGE 1410 TRANSFER TO WHEELCHAIR VIA STAND PIVOT WITH GAIT BELT. PT TO TRANSPORT TO THE [facility]
== END 2020-07-15 14:12 | disposition home or self-care (01) | DRG 240 ==
LOC: ER 16:19 → SURS 23:25 → ER 07-09 00:06 → SURS 07-09 00:17
PROVIDERS: Family Medicine; Internal Medicine; Orthopaedic Surgery; Pharmacist; Physician Assistant; ADMIT Internal Medicine
PROC: 0Y6H0Z1 Detachment at Right Lower Leg, High, Open Approach (ICD-10-PCS; principal; 2020-07-10 08:00)
PROC: 30233N1 Transfusion of Nonautologous Red Blood Cells into Peripheral Vein, Percutaneous Approach (ICD-10-PCS; 2020-07-13)
DX: E11.52 Type 2 diabetes mellitus with diabetic peripheral angiopathy with gangrene (principal); I96 Gangrene, not elsewhere classified; E11.22 Type 2 diabetes mellitus with diabetic chronic kidney disease; F32.9 Major depressive disorder, single episode, unspecified; Z20.822 Contact with and (suspected) exposure to COVID-19; I73.9 Peripheral vascular disease, unspecified; I12.9 Hypertensive chronic kidney disease with stage 1 through stage 4 chronic kidney disease, or unspecified chronic kidney disease; N18.30 Chronic kidney disease, stage 3 unspecified; K21.9 Gastro-esophageal reflux disease without esophagitis; Z87.891 Personal history of nicotine dependence; Z66 Do not resuscitate; D63.1 Anemia in chronic kidney disease; N40.0 Benign prostatic hyperplasia without lower urinary tract symptoms; E11.40 Type 2 diabetes mellitus with diabetic neuropathy, unspecified; D63.8 Anemia in other chronic diseases classified elsewhere
CPT/HCPCS: 0241U; 36415; 36430; 51702; 73630; 80048; 80053; 80202; 81001; 82565; 82947; 83605; 85025; 85610; 85651; 85730; 86140; 86850; 86900; 86901; 86923; 87040; 88307; 96365-59; 97110; 97161; 97166; 97530; 99284-25; A9270; J0692; J1100; J1170; J1650; J2060; J2250; J2405; J2704; J3010; J3370; J7040; J7050; J7120; P9016

== ENCOUNTER 2020-11-09 11:41 | Day surgery (SDC) | payer OTHER ==
[~2020-11-09 11:41] MED LIST changes: +HYDR1TAB94 PO
== END 2020-11-09 16:25 | disposition home or self-care (01) ==
LOC: ATC 11:41
DX: E11.69 Type 2 diabetes mellitus with other specified complication (principal); M86.9 Osteomyelitis, unspecified; E11.22 Type 2 diabetes mellitus with diabetic chronic kidney disease; N18.30 Chronic kidney disease, stage 3 unspecified; Z88.8 Allergy status to other drugs, medicaments and biological substances; Z88.1 Allergy status to other antibiotic agents; Z91.041 Radiographic dye allergy status
CPT/HCPCS: 36569; C1751

== ENCOUNTER 2021-03-20 08:31 | Emergency (ER) | payer OTHER ==
[~2021-03-20] VITALS: Ht 172.7 cm; Wt 81.7 kg
[2021-03-20] MEDS ORDERED: Percocet 5-3251 EACH PO (15:18)
[2021-03-20] MEDS ORDERED: LIDO700A20 TOP (15:30)
== END 2021-03-20 16:35 | disposition home or self-care (01) ==
LOC: ER 08:31
DX: M47.812 Spondylosis without myelopathy or radiculopathy, cervical region (principal); M25.512 Pain in left shoulder; M25.511 Pain in right shoulder; I12.9 Hypertensive chronic kidney disease with stage 1 through stage 4 chronic kidney disease, or unspecified chronic kidney disease; E11.22 Type 2 diabetes mellitus with diabetic chronic kidney disease; N18.9 Chronic kidney disease, unspecified; E11.51 Type 2 diabetes mellitus with diabetic peripheral angiopathy without gangrene; I73.9 Peripheral vascular disease, unspecified; K21.9 Gastro-esophageal reflux disease without esophagitis; Z91.041 Radiographic dye allergy status; Z88.8 Allergy status to other drugs, medicaments and biological substances; Z79.899 Other long term (current) drug therapy; Z79.82 Long term (current) use of aspirin; Z79.02 Long term (current) use of antithrombotics/antiplatelets; Z87.891 Personal history of nicotine dependence
CPT/HCPCS: 72141; 96372; 99284-25; A9270; J1170

== ENCOUNTER → 2021-09-28 | Outpatient (CLI) | payer SELFPAY ==
[~2021-09-28] MED LIST changes: +LIDO700A20 TOP; +ONDA4ODT MM; +Percocet 5-3251 EACH PO
[2021-09-28 16:04] LABS: Alanine Aminotransfer (ALT/SGP 24 U/L (12-78); Albumin/Globulin Ratio 0.9 (0.8-1.8); Alk Phos 57 U/L (50-136); Anion Gap 6 mmol/L (6-16); Aspartate Aminotrans (AST/SGOT 18 U/L (12-37); Bilirubin, Total 0.5 mg/dL (0.1-1.0); Blood Urea Nitrogen 20 mg/dL (8-24); CO2, Blood 28 mmol/L (21-32); Calcium, Blood 8.7 mg/dL (8.5-10.1); Chloride, Blood 105 mmol/L (98-108); Creatinine, Blood 1.11 mg/dL (0.60-1.20); Globulin, Blood 3.3 g/dL (2.2-4.0); Glomerular Filtration Rate >60 (60-); Glucose, Blood 126 mg/dL (70-99); Potassium, Blood 4.3 mmol/L (3.5-5.5); Sodium, Blood 139 mmol/L (136-145); Total Protein, Blood 6.3 g/dL (6.4-8.2)
== END | disposition home or self-care (01) ==
LOC: LAB SHORT 12:26 → LAB 12:26
PROVIDERS: Nurse Practitioner Family
DX: Z51.81 Encounter for therapeutic drug level monitoring (principal); Z79.891 Long term (current) use of opiate analgesic
CPT/HCPCS: 80053

== ENCOUNTER → 2021-12-19 | Outpatient (CLI) | payer SELFPAY ==
[~2021-12-19] MED LIST changes: -ONDA4ODT MM
[2021-12-19 15:22] LABS: U Amphetamine Screen Not Detected; U Barbituate Screen Not Detected; U Benzodiazapine Screen Not Detected; U Buprenorphine Screen Not Detected; U Cannabinoids Screen Not Detected; U Cocaine Screen Not Detected; U Methadone Screen Not Detected; U Methamphetamine Screen Not Detected; U Opiates Screen Not Detected; U Oxycodone Screen DETECTED; U Phencyclidine Screen Not Detected; U Propoxyphene Screen Not Detected
== END ==
LOC: LAB SHORT 12:40
PROVIDERS: Nurse Practitioner Family
DX: Z79.899 Other long term (current) drug therapy (principal)

== ENCOUNTER 2022-01-12 11:04 | Emergency (ER) | payer OTHER ==
[~2022-01-12] VITALS: Ht 172.7 cm; Wt 81.7 kg
[2022-01-12 12:22] LABS: BASOPHILS ABSOLUTE AUTO 0.01 K/mm3 (0.00-0.23); BASOPHILS PERCENT AUTO 0 % (0-2); EOSINOPHILS ABSOLUTE AUTO 0.07 K/mm3 (0.00-0.68); EOSINOPHILS PERCENT AUTO 2 % (0-6); Hematocrit 39.1 % (37.0-53.0); Hemoglobin 13.8 g/dL (13.5-17.5); IMMATURE GRAN ABSOLUTE AUTO 0.05 K/mm3 (0.00-0.10); IMMATURE GRAN PERCENT AUTO 1 % (0-1); LYMPHOCYTES ABSOLUTE AUTO 0.95 K/mm3 (0.84-5.20); LYMPHOCYTES PERCENT AUTO 24 % (21-46); MONOCYTES ABSOLUTE AUTO 0.33 K/mm3 (0.16-1.47); MONOCYTES PERCENT AUTO 8 % (4-13); Mean Corpuscular HGB 32.5 pg (26.0-34.0); Mean Corpuscular HGB Conc 35.3 g/dL (31.5-36.5); Mean Corpuscular Volume 92 fL (80-100); Mean Platelet Volume 10.2 fL (9.1-12.4); NEUTROPHILS ABSOLUTE AUTO 2.51 K/mm3 (1.96-9.15); NEUTROPHILS PERCENT AUTO 64 % (41-73); Platelet Count 117 K/mm3 (150-400); RDW Coefficient Variation 11.9 % (11.7-14.2); RDW Standard Deviation 39.8 fL (35.1-46.3); Red Blood Cell Count 4.25 M/mm3 (4.30-5.90); White Blood Cell Count 3.92 K/mm3 (4.00-11.30)
[2022-01-12 12:44] LABS: Albumin, Blood 3.6 g/dL (3.4-5.0); Albumin/Globulin Ratio 0.9 (0.8-1.8); Bilirubin, Total 0.5 mg/dL (0.1-1.0); Bun/Creatinine Ratio 14.3 (12.0-20.0); Calcium, Blood 9.5 mg/dL (8.5-10.1); Creatinine, Blood 1.05 mg/dL (0.60-1.20); Globulin, Blood 4.2 g/dL (2.2-4.0); Magnesium, Blood 1.4 mg/dL (1.6-2.4); Potassium, Blood 4.8 mmol/L (3.5-5.5); Total Protein, Blood 7.8 g/dL (6.4-8.2)
[2022-01-12] MEDS ORDERED: ONDA4ODT MM (14:13)
== END 2022-01-12 15:07 | disposition home or self-care (01) ==
LOC: ER 11:04
PROVIDERS: Student in an Organized Health Care Education/Training Program
DX: U07.1 COVID-19 (principal); E83.42 Hypomagnesemia; E86.0 Dehydration; I12.9 Hypertensive chronic kidney disease with stage 1 through stage 4 chronic kidney disease, or unspecified chronic kidney disease; E11.22 Type 2 diabetes mellitus with diabetic chronic kidney disease; N18.9 Chronic kidney disease, unspecified; Z79.899 Other long term (current) drug therapy; Z79.82 Long term (current) use of aspirin; Z79.02 Long term (current) use of antithrombotics/antiplatelets; Z88.8 Allergy status to other drugs, medicaments and biological substances; Z91.041 Radiographic dye allergy status
CPT/HCPCS: 71045; 80053; 83735; 84145; 85025; 93005; 93010; 94640; 94664; J1885; J2405; J3475; J7030

== ENCOUNTER 2022-04-11 09:05 | Day surgery (SDC) | payer OTHER ==
[~2022-04-11] VITALS: Ht 172.7 cm; Wt 76.6 kg
[~2022-04-11 09:05] MED LIST changes: +ONDA4ODT MM
== END 2022-04-11 12:03 | disposition home or self-care (01) ==
LOC: ORSCSDS 09:05
PROVIDERS: Internal Medicine Gastroenterology
PROC: 0DBM8ZX Excision of Descending Colon, Via Natural or Artificial Opening Endoscopic, Diagnostic (ICD-10-PCS; principal; 2022-04-11 10:30)
PROC: 0DBK8ZX Excision of Ascending Colon, Via Natural or Artificial Opening Endoscopic, Diagnostic (ICD-10-PCS; principal; 2022-04-11 10:30)
PROC: 0DB58ZX Excision of Esophagus, Via Natural or Artificial Opening Endoscopic, Diagnostic (ICD-10-PCS; principal; 2022-04-11 10:30)
PROC: 0DBL8ZX Excision of Transverse Colon, Via Natural or Artificial Opening Endoscopic, Diagnostic (ICD-10-PCS; principal; 2022-04-11 10:30)
DX: K22.70 Barrett's esophagus without dysplasia (principal); D12.2 Benign neoplasm of ascending colon; D12.3 Benign neoplasm of transverse colon; D12.4 Benign neoplasm of descending colon; K64.8 Other hemorrhoids; K57.30 Diverticulosis of large intestine without perforation or abscess without bleeding; Z12.11 Encounter for screening for malignant neoplasm of colon; Z86.010 Personal history of colon polyps; E11.9 Type 2 diabetes mellitus without complications; I10 Essential (primary) hypertension; I73.9 Peripheral vascular disease, unspecified; Z79.899 Other long term (current) drug therapy; Z87.891 Personal history of nicotine dependence
CPT/HCPCS: 82947; 88305; J2704; J7120

== ENCOUNTER 2022-04-12 08:19 | Emergency (ER) | payer OTHER ==
[~2022-04-12] VITALS: Ht 172.7 cm; Wt 77.1 kg
[2022-04-12 09:13] LABS: Bun/Creatinine Ratio 11.6 (12.0-20.0); Creatinine, Blood 1.47 mg/dL (0.60-1.20); Potassium, Blood 3.4 mmol/L (3.5-5.5)
[2022-04-12 09:36] LABS: Source, Urine Straight Cath
[2022-04-12 09:42] LABS: Bilirubin, Urine Neg (Neg); Blood, Urine Neg (Neg); Glucose Qualitative, Urine Neg (Neg); Ketones, Urine 1+ (Neg); Leukocyte Esterase, Urine 1+ (Neg); Nitrite, Urine Neg (Neg); Protein, Urine 3+ (Neg); Urobilinogen, Urine NORM (Normal)
[2022-04-12 09:58] LABS: Appearance, Urine Hazy (Clear); Bacteria Rare /hpf; Color, Urine Yellow (P-Yellow); Red Blood Cells, Urine Not Seen /hpf (0-2); Squamous Epithelial Cells Rare /hpf (Few); White Blood Cells, Urine 0-2 /hpf (0-5)
== END 2022-04-12 13:02 | disposition home or self-care (01) ==
LOC: ER 08:19
PROVIDERS: Student in an Organized Health Care Education/Training Program
DX: R33.9 Retention of urine, unspecified (principal); I12.9 Hypertensive chronic kidney disease with stage 1 through stage 4 chronic kidney disease, or unspecified chronic kidney disease; N18.9 Chronic kidney disease, unspecified; E11.22 Type 2 diabetes mellitus with diabetic chronic kidney disease; K21.9 Gastro-esophageal reflux disease without esophagitis; Z91.041 Radiographic dye allergy status; Z88.8 Allergy status to other drugs, medicaments and biological substances; Z79.899 Other long term (current) drug therapy
CPT/HCPCS: 36415; 51701; 51798; 80048; 81001; 87077; 87086; 87186; A9270; J7030

== ENCOUNTER 2022-04-29 15:37 | Emergency (ER) | payer OTHER ==
[~2022-04-29] VITALS: Ht 172.7 cm; Wt 74.8 kg
[2022-04-29 16:45] LABS: BASOPHILS ABSOLUTE AUTO 0.02 K/mm3 (0.00-0.23); BASOPHILS PERCENT AUTO 0 % (0-2); EOSINOPHILS ABSOLUTE AUTO 0.06 K/mm3 (0.00-0.68); EOSINOPHILS PERCENT AUTO 1 % (0-6); Hematocrit 38.4 % (37.0-53.0); IMMATURE GRAN ABSOLUTE AUTO 0.03 K/mm3 (0.00-0.10); IMMATURE GRAN PERCENT AUTO 1 % (0-1); LYMPHOCYTES ABSOLUTE AUTO 1.24 K/mm3 (0.84-5.20); LYMPHOCYTES PERCENT AUTO 20 % (21-46); MONOCYTES ABSOLUTE AUTO 0.57 K/mm3 (0.16-1.47); MONOCYTES PERCENT AUTO 9 % (4-13); Mean Corpuscular HGB 33.5 pg (26.0-34.0); Mean Corpuscular HGB Conc 36.5 g/dL (31.5-36.5); Mean Corpuscular Volume 92 fL (80-100); Mean Platelet Volume 10.1 fL (9.1-12.4); NEUTROPHILS ABSOLUTE AUTO 4.37 K/mm3 (1.96-9.15); NEUTROPHILS PERCENT AUTO 69 % (41-73); Platelet Count 168 K/mm3 (150-400); RDW Coefficient Variation 11.5 % (11.7-14.2); Red Blood Cell Count 4.18 M/mm3 (4.30-5.90); White Blood Cell Count 6.29 K/mm3 (4.00-11.30)
[2022-04-29 16:56] LABS: Salicylate <1.7 mg/dL (2.8-20.0)
[2022-04-29 16:58] LABS: Acetaminophen, Random <2.0 ug/mL (10.0-30.0); Alanine Aminotransfer (ALT/SGP 30 U/L (12-78); Albumin, Blood 3.8 g/dL (3.4-5.0); Alk Phos 67 U/L (50-136); Anion Gap 11 mmol/L (6-16); Aspartate Aminotrans (AST/SGOT 25 U/L (12-37); Bilirubin, Total 0.5 mg/dL (0.1-1.0); Blood Urea Nitrogen 21 mg/dL (8-24); Bun/Creatinine Ratio 15.7 (12.0-20.0); CO2, Blood 19 mmol/L (21-32); Calcium, Blood 9.4 mg/dL (8.5-10.1); Chloride, Blood 107 mmol/L (98-108); Creatinine, Blood 1.34 mg/dL (0.60-1.20); Ethanol (Alcohol), Blood, Med <3 mg/dL; Globulin, Blood 3.9 g/dL (2.2-4.0); Glomerular Filtration Rate 54 (60-); Glucose, Blood 89 mg/dL (70-99); Potassium, Blood 4.2 mmol/L (3.5-5.5); Sodium, Blood 137 mmol/L (136-145); Total Protein, Blood 7.7 g/dL (6.4-8.2)
[2022-04-29] MEDS ORDERED: LORA.5 PO (21:46)
== END 2022-04-29 22:46 | disposition home or self-care (01) ==
LOC: ER 15:37
PROVIDERS: Physician Assistant
DX: F41.8 Other specified anxiety disorders (principal); Z88.8 Allergy status to other drugs, medicaments and biological substances; Z91.041 Radiographic dye allergy status; Z79.899 Other long term (current) drug therapy; Z79.82 Long term (current) use of aspirin; I12.9 Hypertensive chronic kidney disease with stage 1 through stage 4 chronic kidney disease, or unspecified chronic kidney disease; E11.22 Type 2 diabetes mellitus with diabetic chronic kidney disease; N18.9 Chronic kidney disease, unspecified; E11.51 Type 2 diabetes mellitus with diabetic peripheral angiopathy without gangrene
CPT/HCPCS: 36415; 51702; 80053; 85025; A9270; G0480

== ENCOUNTER 2022-04-30 15:02 | Emergency (ER) | payer OTHER ==
[~2022-04-30] VITALS: Ht 172.7 cm; Wt 74.8 kg
[~2022-04-30 15:02] MED LIST changes: +LORA.5 PO
[2022-04-30 15:57] LABS: BASOPHILS ABSOLUTE AUTO 0.02 K/mm3 (0.00-0.23); BASOPHILS PERCENT AUTO 0 % (0-2); EOSINOPHILS ABSOLUTE AUTO 0.04 K/mm3 (0.00-0.68); EOSINOPHILS PERCENT AUTO 1 % (0-6); Hematocrit 37.5 % (37.0-53.0); Hemoglobin 13.3 g/dL (13.5-17.5); IMMATURE GRAN ABSOLUTE AUTO 0.02 K/mm3 (0.00-0.10); IMMATURE GRAN PERCENT AUTO 0 % (0-1); LYMPHOCYTES ABSOLUTE AUTO 1.31 K/mm3 (0.84-5.20); LYMPHOCYTES PERCENT AUTO 20 % (21-46); MONOCYTES ABSOLUTE AUTO 0.63 K/mm3 (0.16-1.47); MONOCYTES PERCENT AUTO 9 % (4-13); Mean Corpuscular HGB 32.9 pg (26.0-34.0); Mean Corpuscular HGB Conc 35.5 g/dL (31.5-36.5); Mean Corpuscular Volume 93 fL (80-100); Mean Platelet Volume 10.4 fL (9.1-12.4); NEUTROPHILS ABSOLUTE AUTO 4.69 K/mm3 (1.96-9.15); NEUTROPHILS PERCENT AUTO 70 % (41-73); Platelet Count 143 K/mm3 (150-400); RDW Coefficient Variation 11.4 % (11.7-14.2); RDW Standard Deviation 38.8 fL (35.1-46.3); Red Blood Cell Count 4.04 M/mm3 (4.30-5.90); White Blood Cell Count 6.71 K/mm3 (4.00-11.30)
[2022-04-30 16:13] LABS: Albumin, Blood 3.7 g/dL (3.4-5.0); Albumin/Globulin Ratio 1.1 (0.8-1.8); Bilirubin, Total 0.5 mg/dL (0.1-1.0); Bun/Creatinine Ratio 14.9 (12.0-20.0); Calcium, Blood 9.4 mg/dL (8.5-10.1); Creatinine, Blood 1.48 mg/dL (0.60-1.20); Globulin, Blood 3.4 g/dL (2.2-4.0); Potassium, Blood 3.8 mmol/L (3.5-5.5); Total Protein, Blood 7.1 g/dL (6.4-8.2)
== END 2022-04-30 20:24 | disposition home or self-care (01) ==
LOC: ER 15:02
PROVIDERS: Physician Assistant
DX: T83.091A Other mechanical complication of indwelling urethral catheter, initial encounter (principal); Y84.6 Urinary catheterization as the cause of abnormal reaction of the patient, or of later complication, without mention of misadventure at the time of the procedure; Z88.8 Allergy status to other drugs, medicaments and biological substances; Z79.899 Other long term (current) drug therapy; I12.9 Hypertensive chronic kidney disease with stage 1 through stage 4 chronic kidney disease, or unspecified chronic kidney disease; E11.22 Type 2 diabetes mellitus with diabetic chronic kidney disease; N18.9 Chronic kidney disease, unspecified; E11.51 Type 2 diabetes mellitus with diabetic peripheral angiopathy without gangrene
CPT/HCPCS: 51798; 80053; 85025; A9270

== ENCOUNTER → 2022-06-11 | Outpatient (CLI) | payer OTHER ==
[2022-06-11 18:04] LABS: Appearance, Urine Hazy (Clear); Bilirubin, Urine Neg (Neg); Blood, Urine 4+ (Neg); Color, Urine Yellow (P-Yellow); Glucose Qualitative, Urine Neg (Neg); Ketones, Urine Neg (Neg); Leukocyte Esterase, Urine 1+ (Neg); Nitrite, Urine Neg (Neg); Protein, Urine 3+ (Neg); Specific Gravity, Urine 1.015 (1.003-1.022); Urobilinogen, Urine NORM (Normal)
[2022-06-11 18:48] LABS: Hyaline Casts 0-2 /lpf (0-2); Mucus Light (0-Heavy); Squamous Epithelial Cells Rare /hpf (Few)
[2022-06-11 18:49] LABS: Red Blood Cells, Urine 25-50 /hpf (0-2)
[2022-06-11 18:50] LABS: Bacteria Many /hpf; White Blood Cells, Urine 25-50 /hpf (0-5)
[2022-06-11 18:51] LABS: Amorphous Light (0-Heavy)
== END | disposition home or self-care (01) ==
LOC: LAB SHORT 14:45
PROVIDERS: Nurse Practitioner Family
DX: R31.9 Hematuria, unspecified (principal)
CPT/HCPCS: 81001; 87077; 87086; 87186

== ENCOUNTER 2022-09-18 09:55 | Day surgery (SDC) | payer OTHER ==
[~2022-09-18] VITALS: Ht 172.7 cm; Wt 75.5 kg
[2022-09-18] MEDS ORDERED: AMLO10 (10:19)
[2022-09-18] MEDS ORDERED: FURO20 (10:20)
[2022-09-18] MEDS ORDERED: GABA300 (10:20)
[2022-09-18] MEDS ORDERED: FERROUS GLUCON324 M7 (10:20)
[2022-09-18] MEDS ORDERED: ARNUITY ELLIPT50 MCG (10:20)
[2022-09-18] MEDS ORDERED: POTA10T (10:21)
[2022-09-18] MEDS ORDERED: PANT20 (10:21)
[2022-09-18] MEDS ORDERED: QUET25 (10:21)
[2022-09-18] MEDS ORDERED: LISI10 (10:21)
[2022-09-18] MEDS ORDERED: FINA5 (10:21)
--- NOTE | 2022-09-18 10:25 | NUR ---
09/18/22 1025 Kenisha Cisse TETRACAINE TO LEFT EYE AT 1020 PLEDGET TO LEFT EYE AT 1025 BY [facility].JAZ
--- NOTE | 2022-09-18 11:36 | NUR ---
09/18/22 1136 Ananya Avendaño PT NOTED TO HAVE AN INFLAMMED LEFT LONG FINGER. HE WAS ADVISED BY DR. SALOMON THAT THIS NEEDS TO BE SEEN KENDRICK. PT VERBALIZED UNDERSTANDING.
== END 2022-09-18 12:11 | disposition home or self-care (01) ==
LOC: ORSCSDS 09:55
PROVIDERS: Student in an Organized Health Care Education/Training Program
PROC: 08DK3ZZ Extraction of Left Lens, Percutaneous Approach (ICD-10-PCS; principal; 2022-09-18 11:00)
DX: E11.36 Type 2 diabetes mellitus with diabetic cataract (principal); H25.12 Age-related nuclear cataract, left eye; Z87.891 Personal history of nicotine dependence; E11.319 Type 2 diabetes mellitus with unspecified diabetic retinopathy without macular edema; I10 Essential (primary) hypertension; Z79.82 Long term (current) use of aspirin; Z79.899 Other long term (current) drug therapy; Z79.02 Long term (current) use of antithrombotics/antiplatelets
CPT/HCPCS: 82947; J2001; J2250; J3010; J7040; V2632

== ENCOUNTER 2024-03-03 08:28 | Day surgery (SDC) | payer OTHER ==
[~2024-03-03] VITALS: Ht 172.7 cm; Wt 79.4 kg
[~2024-03-03 08:28] MED LIST changes: +AMLO10 PO; +ARNUITY ELLIPT50 MCG; +BUSP10 PO; +Calcium Carbon500 MG PO; +DOCU100 PO; +FERROUS GLUCON324 M7; +FINA5; +FURO20 PO; +GABA300 PO; +LISI10; +MEGE40T PO; +PANT20 PO; +POTA10T PO; +Percocet 10-321 EACH PO; +QUET25
[2024-03-03 09:06] VITALS: BP 165/79
[2024-03-03 09:15] VITALS: BP 183/76
[2024-03-03] MEDS ORDERED: Midazolam HCl 1MG / ML 2ML Vial ONE (09:36)
[2024-03-03] MEDS ORDERED: FentaNYL Citrate 50 MCG/ML 2 ML Injection ONE ×2 (09:36→09:53)
[2024-03-03] MEDS ORDERED: NS 1,000 ML IV ONE (09:37)
[2024-03-03 10:17] VITALS: BP 129/110
[2024-03-03 10:30] VITALS: BP 104/85
[2024-03-03 10:45] VITALS: BP 145/79
[2024-03-03 11:00] VITALS: BP 190/74
--- NOTE | 2024-03-03 11:35 | NUR ---
PT VERBALIZES UNDERSTANDING WRITTEN INSTRUCTIONS. DENIES QUESTIONS OR CONCERNS. PT IV DC'D. CATH INTACT. PRESURE DSG APPLIED. NO BLEEDING NOTED. PT DRESSES SELF WITH MINIMAL ASSISTANCE. PT DC TO HOME VIA WC VIA FRIEND.
== END 2024-03-03 11:35 | disposition home or self-care (01) ==
LOC: MHTC 08:28
DX: N40.1 Benign prostatic hyperplasia with lower urinary tract symptoms (principal); N32.0 Bladder-neck obstruction; R33.8 Other retention of urine; E11.51 Type 2 diabetes mellitus with diabetic peripheral angiopathy without gangrene; I70.222 Atherosclerosis of native arteries of extremities with rest pain, left leg; E11.621 Type 2 diabetes mellitus with foot ulcer; L97.529 Non-pressure chronic ulcer of other part of left foot with unspecified severity; I10 Essential (primary) hypertension; E11.319 Type 2 diabetes mellitus with unspecified diabetic retinopathy without macular edema; F17.210 Nicotine dependence, cigarettes, uncomplicated; Z91.041 Radiographic dye allergy status; Z79.899 Other long term (current) drug therapy
CPT/HCPCS: 51102; 76937; 99152; C1729; C1769; J2250; J3010; J7030; Q9967

== ENCOUNTER 2024-03-05 22:29 | Inpatient (IN) | payer OTHER ==
[~2024-03-05] VITALS: Ht 172.7 cm; Wt 79.4 kg
[2024-03-05] MEDS ORDERED: C COMPLEX1000 M1 PO (22:44)
[2024-03-05] MEDS ORDERED: Lopressor 25 mg25 MG PO (22:45)
[2024-03-05] MEDS ORDERED: ASPI325 PO (22:47)
[2024-03-05] MEDS ORDERED: BUPR75 PO (22:48)
[2024-03-05] MEDS ORDERED: Morphine Sulfate 4 MG/1 ML Injection IV ONE (22:50)
[2024-03-05] MEDS ORDERED: Ondansetron HCl 2 MG / ML 2ML Vial IV ONE (22:50)
[2024-03-05 23:03] LABS: BASOPHILS ABSOLUTE AUTO 0.02 K/mm3 (0.00-0.23); BASOPHILS PERCENT AUTO 0 % (0-2); EOSINOPHILS ABSOLUTE AUTO 0.18 K/mm3 (0.00-0.68); EOSINOPHILS PERCENT AUTO 2 % (0-6); Hematocrit 28.4 % (37.0-53.0); Hemoglobin 9.8 g/dL (13.5-17.5); IMMATURE GRAN ABSOLUTE AUTO 0.11 K/mm3 (0.00-0.10); IMMATURE GRAN PERCENT AUTO 1 % (0-1); LYMPHOCYTES ABSOLUTE AUTO 0.79 K/mm3 (0.84-5.20); LYMPHOCYTES PERCENT AUTO 9 % (21-46); MONOCYTES ABSOLUTE AUTO 0.58 K/mm3 (0.16-1.47); MONOCYTES PERCENT AUTO 6 % (4-13); Mean Corpuscular HGB Conc 34.5 g/dL (31.5-36.5); Mean Corpuscular Volume 101 fL (80-100); Mean Platelet Volume 10.4 fL (9.1-12.4); NEUTROPHILS ABSOLUTE AUTO 7.51 K/mm3 (1.96-9.15); NEUTROPHILS PERCENT AUTO 82 % (41-73); NRBC ABSOLUTE 0.02 K/mm3 (0.00-0.02); NRBC Auto 0.2 /100 WBC (0.0-0.2); Platelet Count 91 K/mm3 (150-400); RDW Standard Deviation 44.7 fL (35.1-46.3); White Blood Cell Count 9.19 K/mm3 (4.00-11.30)
[2024-03-05 23:13] LABS: Alanine Aminotransfer (ALT/SGP 11 U/L (12-78); Albumin, Blood 2.4 g/dL (3.4-5.0); Albumin/Globulin Ratio 0.6 (0.8-1.8); Alk Phos 83 U/L (50-136); Anion Gap 14 mmol/L (3-11); Aspartate Aminotrans (AST/SGOT 12 U/L (12-37); Bilirubin, Total 0.4 mg/dL (0.1-1.0); Blood Urea Nitrogen 29 mg/dL (8-24); Bun/Creatinine Ratio 17.3 (12.0-20.0); CO2, Blood 20 mmol/L (21-32); Calcium, Blood 8.4 mg/dL (8.5-10.1); Chloride, Blood 99 mmol/L (98-108); Creatinine, Blood 1.68 mg/dL (0.60-1.20); Globulin, Blood 4.3 g/dL (2.2-4.0); Glomerular Filtration Rate 41 (60-); Glucose, Blood 123 mg/dL (70-99); Magnesium, Blood 2.6 mg/dL (1.6-2.4); Potassium, Blood 4.4 mmol/L (3.5-5.5); Sodium, Blood 129 mmol/L (136-145); Total Protein, Blood 6.7 g/dL (6.4-8.2)
[2024-03-06] MEDS ORDERED: NS 1,000 ML IV SCH (00:50)
[2024-03-06 00:57] LABS: Source, Urine Clean Catch
[2024-03-06 00:59] LABS: Bilirubin, Urine Neg (Neg); Blood, Urine 5+ (Neg); Glucose Qualitative, Urine Neg (Neg); Ketones, Urine Neg (Neg); Leukocyte Esterase, Urine 3+ (Neg); Nitrite, Urine Neg (Neg); Protein, Urine 3+ (Neg); Specific Gravity, Urine 1.005 (1.003-1.022); Urobilinogen, Urine NORM (Normal)
[2024-03-06] MEDS ORDERED: HYDROmorphone HCl/Pf 1MG SYR IV ONE (01:05)
[2024-03-06] MEDS ORDERED: MIRALAX17 GM PO (01:07)
[2024-03-06 01:37] LABS: Appearance, Urine Hazy (Clear); Color, Urine Yellow (P-Yellow)
[2024-03-06 01:38] LABS: Amorphous Mod (0-Heavy); Bacteria Mod /hpf; Red Blood Cells, Urine 0-2 /hpf (0-2); Squamous Epithelial Cells Rare /hpf (Few); White Blood Cells, Urine 25-50 /hpf (0-5)
[2024-03-06] MEDS ORDERED: Cefuroxime Axetil 250 MG Tab PO ONE (03:40)
[2024-03-06] MEDS ORDERED: CefTRIAXone Sodium 1,000 MG in NS 50 ML IV ONE (03:45)
[2024-03-06] MEDS ORDERED: Ondansetron HCl 2 MG / ML 2ML Vial IV PRN (04:25)
[2024-03-06] MEDS ORDERED: Acetaminophen 325 MG TABLET PO PRN (04:25)
[2024-03-06] MEDS ORDERED: Lactobacil 2-S.Thermo-Bifido 1 1 Cap PO SCH (09:00)
[2024-03-06] MEDS ORDERED: OxyCODONE 10/Acetamin 325 TABLET PO PRN (11:20)
[2024-03-06] MEDS ORDERED: Insulin Human Lispro 100 Units/ML 3ML Syringe SC SCH (11:30)
--- NOTE | 2024-03-06 11:46 | NUR ---
REPORT RECEIVED FROM TONY IN ED. PATIENT WILL BE COMING TO ROOM 305. WILL CHECK GLUCOSE WHEN UP ON FLOOR AND ED WILL ATTEMPT TO COMPLETE RESPIRATORY PANEL BEFORE HE LEAVES ED.
[2024-03-06] MEDS ORDERED: Polyethylene Glycol 3350 17 gm PO SCH (12:00)
--- NOTE | 2024-03-06 12:53 | NUR ---
PYTHON ENGINEER TO ROOM TO CHECK BLOOD GLUCOSE. PATIENT DECLINED, STATING HIS BLOOD SUGAR WAS LAST 118 AND HIS MOST RECENT A1c WAS 5.4 AND IS LIKELY LOWER THAN EVEN THE CNAs OWN A1c. EDUCATION PROVIDED REGARDING PATIENT'S RIGHTS AND CONTRIBUTIONS TO [id number]. PROVIDER NOTIFIED.
[2024-03-06 14:57] LABS: Adenovirus Not Detected (NOT DETECT); Bordetella pertussis Not Detected (NOT DETECT); Chlamydophila pneumoniae Not Detected (NOT DETECT); Coronavirus 229E Not Detected (NOT DETECT); Coronavirus HKU1 Not Detected (NOT DETECT); Coronavirus NL63 Not Detected (NOT DETECT); Coronavirus OC43 Not Detected (NOT DETECT); Human Metapneumovirus Not Detected (NOT DETECT); Human Rhinovirus/Enterovirus Not Detected (NOT DETECT); Influenza A/2009-H1 Not Detected (NOT DETECT); Influenza A/H1 Not Detected (NOT DETECT); Influenza A/H3 Not Detected (NOT DETECT); Influenza B Not Detected (NOT DETECT); Mycoplasma pneumoniae Not Detected (NOT DETECT); Parainfluenza Virus 1 Not Detected (NOT DETECT); Parainfluenza Virus 2 Not Detected (NOT DETECT); Parainfluenza Virus 3 Not Detected (NOT DETECT); Parainfluenza Virus 4 Not Detected (NOT DETECT); Respiratory Syncytial Virus Not Detected (NOT DETECT); SARS-Cov-2 (COVID-19), BioFire Not Detected (NOT DETECT)
[2024-03-06] MEDS ORDERED: DEXTROMETHORPHAN/BENZOCAINE 1 EACH LOZENGE MT PRN (15:05)
[2024-03-06 19:08] VITALS: BP 155/68
--- NOTE | 2024-03-06 19:13 | NUR ---
END OF SHIFT SUMMARY: A&Ox4. IRRITABLE. COOPERATIVE WITH CARE. VERY AWARE OF ABILITIES AND ABLE TO COMPLETE MOST ADLs AND ABLE TO DIRECT OWN CARE. CALLS APPROPRIATELY AND IS ABLE TO ADVOCATE NEEDS EFFECTIVELY. BEDREST. RIGHT BKA. STAND-PIVOT TO BEDSIDE COMMODE IF BM NEEDED. SUPRAPUBIC CATHETER PATENT AND DRAINING LIGHT YELLOW URINE. URINE SPECIMEN SENT FOR CULTURE TODAY. BED IN LOWEST POSITION. CALL LIGHT WITHIN REACH. ALL NEEDS MET. REPORT TO ONCOMING RN.
[2024-03-06] MEDS ORDERED: BusPIRone HCl 10 MG Tab PO SCH (21:00)
[2024-03-06] MEDS ORDERED: Docusate Sodium 100 MG Cap PO SCH (21:00)
[2024-03-06] MEDS ORDERED: Gabapentin 300 MG Cap PO SCH (21:00)
[2024-03-07 03:43] VITALS: BP 166/76
[2024-03-07 04:50] LABS: Hematocrit 25.2 % (37.0-53.0); Hemoglobin 8.7 g/dL (13.5-17.5); Mean Corpuscular HGB 34.7 pg (26.0-34.0); Mean Corpuscular HGB Conc 34.5 g/dL (31.5-36.5); Mean Corpuscular Volume 100 fL (80-100); Mean Platelet Volume 10.4 fL (9.1-12.4); Platelet Count 91 K/mm3 (150-400); RDW Coefficient Variation 11.9 % (11.7-14.2); RDW Standard Deviation 43.8 fL (35.1-46.3); Red Blood Cell Count 2.51 M/mm3 (4.30-5.90); White Blood Cell Count 5.03 K/mm3 (4.00-11.30)
--- NOTE | 2024-03-07 04:50 | NUR ---
SHIFT SUMMARY: Pt admitted for acute on chronic renal insufficiency and is a DNR. is alert and able to make needs known . ADLs have been 1p. Pain has been managed with PRN medication. Superpubic cath is patent and draining clear yellow urine.
[2024-03-07] MEDS ORDERED: Pantoprazole Sodium 20 MG Tab PO SCH (06:00)
[2024-03-07] MEDS ORDERED: CefTRIAXone Sodium 1,000 MG in NS 100 ML IV SCH (06:00)
[2024-03-07 06:07] LABS: Bun/Creatinine Ratio 16.7 (12.0-20.0); Calcium, Blood 8.6 mg/dL (8.5-10.1); Creatinine, Blood 1.5 mg/dL (0.60-1.20); Potassium, Blood 4.2 mmol/L (3.5-5.5)
[2024-03-07 07:25] VITALS: BP 186/79
[2024-03-07] MEDS ORDERED: Metoprolol Tartrate 25 MG Tab PO SCH (09:00)
[2024-03-07] MEDS ORDERED: BuPROPion HCl 75 MG Tab PO SCH (09:00)
[2024-03-07] MEDS ORDERED: Clopidogrel Bisulfate 75 MG Tab PO SCH (09:00)
[2024-03-07] MEDS ORDERED: Calcium Carbonate 500 MG Tab Chew PO SCH (09:00)
[2024-03-07] MEDS ORDERED: AmLODIPine Besylate 5 MG Tab PO SCH (09:00)
[2024-03-07] MEDS ORDERED: Aspirin 325 MG Tab PO SCH (09:00)
[2024-03-07] MEDS ORDERED: Enoxaparin 40 MG/0.4 ML SYR SC SCH (09:00)
[2024-03-07] MEDS ORDERED: Ascorbic Acid 500 MG Tab PO SCH (09:00)
[2024-03-07 15:17] VITALS: BP 173/81
--- NOTE | 2024-03-07 17:08 | NUR ---
SHIFT SUMMARY PT RESTING QUIETLY AT START OF SHIFT, NOT WANTING TO BE WOKE UNTIL HE WOKE HIMSELFT. PT VERY GRUMPY EARLY, BUT HAS BEEN MORE PLEASANT THE DAY WENT ON. PT'S IN TO VISIT FOR SEVERAL HOURS, NOW GONE HOME. DR SIERRA IN TO SEE PT THIS AM, NEW ORDERS PLACED. SITE TO SUPRAPUBIC CATH CLEANED AND DRSG CHANGED. GOWN AND SOME LINENS CHANGED WELL. PT REQUESTING A BED BATH THIS EVENING. GAS WORKER TO ASSIST WHEN PT READY. PT UP TO BSC TO ATTEMPT BM; UNSUCCESSFUL. BOWEL CARE GIVEN AGAIN THIS AM. PT ABLE TO WORK WITH THERAPY THIS AFTERNOON, FEELING BETTER TODAY THAN WHEN HE CAME IN. MEDICATED THIS AM FOR C/O PAIN "EVERYWHERE". NO FURTHER C/O. CALL LT IN REACH.
[2024-03-07] MEDS ORDERED: Polyethylene Glycol 3350 17 gm PO SCH (19:00)
[2024-03-07 19:18] VITALS: BP 186/72
[2024-03-07] MEDS ORDERED: Docusate Sodium 100 MG Cap PO SCH (21:00)
[2024-03-08] MEDS ORDERED: HydrALAZINE HCl 20 MG / ML 1ML Vial IV PRN (00:10)
[2024-03-08 04:03] VITALS: BP 173/89
[2024-03-08 04:45] LABS: Hematocrit 26.7 % (37.0-53.0); Hemoglobin 9.3 g/dL (13.5-17.5); Mean Corpuscular HGB 34.6 pg (26.0-34.0); Mean Corpuscular HGB Conc 34.8 g/dL (31.5-36.5); Mean Corpuscular Volume 99 fL (80-100); Mean Platelet Volume 9.3 fL (9.1-12.4); Platelet Count 105 K/mm3 (150-400); RDW Coefficient Variation 11.9 % (11.7-14.2); RDW Standard Deviation 43.3 fL (35.1-46.3); Red Blood Cell Count 2.69 M/mm3 (4.30-5.90); White Blood Cell Count 3.57 K/mm3 (4.00-11.30)
[2024-03-08 05:10] LABS: Bun/Creatinine Ratio 15.4 (12.0-20.0); Calcium, Blood 8.5 mg/dL (8.5-10.1); Creatinine, Blood 1.3 mg/dL (0.60-1.20); Potassium, Blood 4.1 mmol/L (3.5-5.5)
--- NOTE | 2024-03-08 06:49 | NUR ---
SHIFT SUMMARY: Pt admitted for acute on chronic renal insufficiency and is a DNR. is alert and able to make needs known . ADLs have been 1p. Pain has been managed with PRN medication. Superpubic cath is patent and draining clear yellow urine. Brown thick mucus like drainage noted from superpubic site. PT stated that area is painful. notified. No new orders.
[2024-03-08 07:17] VITALS: BP 194/85
[2024-03-08] MEDS ORDERED: Metoprolol Tartrate 50 MG Tab PO SCH (09:00)
[2024-03-08] MEDS ORDERED: Lisinopril 20 MG Tab PO SCH (09:00)
[2024-03-08] MEDS ORDERED: Lactulose 20 GM/30 ML UDC PO STA (10:43)
[2024-03-08] MEDS ORDERED: Bisacodyl 10 MG Supp PR PRN (10:45)
[2024-03-08] MEDS ORDERED: Vancomycin HCL 2,000 MG in NS 500 ML IV ONE (11:10)
[2024-03-08 11:12] VITALS: BP 134/75
[2024-03-08 15:56] VITALS: BP 186/76
--- NOTE | 2024-03-08 17:50 | NUR ---
SHIFT SUMMARY PT WOKE FOR SHIFT REPORT. PT WANTING SUPPOSITORY, STILL C/O CONSTIPATION. DR PROCTOR IN TO SEE PT AND DISCUSS PLAN OF CARE. NEW ORDERS PLACED AND GIVEN. PT LATER HAVING SEVERAL EXTRA LRG BM'S THRU OUT THE DAY. PT ASSISTED TO BSC; 2P USING G/B. SHOE LASTER ALSO ABLE TO TX PT TO HOME W/C TO GO ABOUT UNIT OUT OF AND [facility]ER TO [facility]. PT ABLE TO TX SELF BACK TO BED FROM W/C, BUT LATER NEEDING ASSIST FOR TX TO BSC EACH TIME AND BACK. ADDITIONAL IV ABX ORDERED AND GIVEN. PT TO D/C TO HOME ON PO ABX TOMORROW AND F/U WITH UROLOGY IN [place]. SUPRAPUBIC CATH SITE STILL SHOWING PURULENT FLUID OUTPUT. CALL LT IN REACH. ABLE TO MAKE NEEDS KNOWN.
[2024-03-08 19:31] VITALS: BP 206/78
--- NOTE | 2024-03-08 21:16 | NUR ---
2110 Pt medicated with Apresoline 10mg IV for BP of 206/78. Securing device around supra pubic cath changed after cleaning area with sterile NS. Some redness around site. Suture remains in place. Bedside nurse notified of care.
[2024-03-08] MEDS ORDERED: Loperamide HCl 2 MG Cap PO PRN (21:30)
[2024-03-08 21:33] VITALS: BP 170/69
[2024-03-08] MEDS ORDERED: Hydrocortisone 1% Ointment 30 GM Tube TOP ONE (22:00)
[2024-03-08] MEDS ORDERED: Hydrocortisone 1% Ointment 30 GM Tube TOP PRN (22:00)
[2024-03-09] MEDS ORDERED: Vancomycin HCL 750 MG in NS 250 ML IV SCH (01:00)
[2024-03-09] MEDS ORDERED: FentaNYL Citrate 50 MCG/ML 2 ML Injection IV PRN (03:05)
[2024-03-09 04:58] VITALS: BP 161/124
--- NOTE | 2024-03-09 06:47 | NUR ---
SHIFT SUMMARY: Pt admitted for acute on chronic renal insufficiency and is a DNR. is alert and able to make needs known . ADLs have been 1p. Pain has been managed with PRN medication. Super pubic cath was displaced per MD as seen on CT scan. Pt currently voiding small amounts through the normal route with each void. Hematuria noted. MD gave phone order OK to place folly if PT requests. Due to type of super pubic md was not able to replace at bedside and stated that he would have to consult with Dr. Taylor to have it done. Dr Chu was the md notified of issue with the super pubic cath.
[2024-03-09 07:30] VITALS: BP 194/91
--- NOTE | 2024-03-09 09:16 | NUR ---
THIS RN SPOKE TARSHA COOK FROM DR. SEPULVEDA'S OFFICE WHO STATED THE SUTURES IN THE PTS RIGHT EAR NEED TO BE REMOVED TODAY (03/09).
[2024-03-09] MEDS ORDERED: Lisinopril 20 MG Tab PO ONE (10:40)
[2024-03-09] MEDS ORDERED: HydrALAZINE HCl 20 MG / ML 1ML Vial IV PRN (10:40)
[2024-03-09 11:26] LABS: Bun/Creatinine Ratio 13.3 (12.0-20.0); Calcium, Blood 8.3 mg/dL (8.5-10.1); Creatinine, Blood 1.28 mg/dL (0.60-1.20)
[2024-03-09 14:45] VITALS: BP 160/102
[2024-03-09] MEDS ORDERED: Gabapentin 300 MG Cap PO ONE (14:45)
[2024-03-09 16:16] LABS: Source, Urine Foley catheter
[2024-03-09 16:31] LABS: Appearance, Urine Hazy (Clear); Bilirubin, Urine Neg (Neg); Blood, Urine 4+ (Neg); Color, Urine Yellow (P-Yellow); Glucose Qualitative, Urine Neg (Neg); Ketones, Urine 1+ (Neg); Leukocyte Esterase, Urine 1+ (Neg); Nitrite, Urine Neg (Neg); Protein, Urine 4+ (Neg); Urobilinogen, Urine NORM (Normal)
[2024-03-09 16:49] LABS: Red Blood Cells, Urine TNTC /hpf (0-2); Squamous Epithelial Cells Rare /hpf (Few)
[2024-03-09 16:50] LABS: Bacteria Many /hpf
--- NOTE | 2024-03-09 18:02 | NUR ---
SHIFT NOTE: PT A/OX4 ABLE TO MAKE HIS NEEDS KNOWN. HIS BLOOD PRESSURE HAS BEEN ELEVATED, MEDICATED PER AUG. HE IS ON RA WITH SPO2>90%. HIS SUPERPUBIC CATH IS DISPLACED, ORDERS RECEIVED TO REMOVE IT. ISSA PLACED FOR CHRONIC RETENTION. UA SENT. DR. ERWIN'S OFFICE NOTIIFIED THAT PATIENT DOES NOT WANT SUPERPUBIC REPLACED. HE REQUIRES 2 STAFF ASSIST TO BSC TO TOILETING NEEDS. HE REPORTS NEUROPATHY PAIN, GABAPENTIN ORDER UPDATED TO HOME DOSE OF 300MG TID. OXY GIVEN PRN TO TREAT PAIN. WILL CONTINUE TO MONITOR AND REPORT TO ONCOMING RN
[2024-03-09 19:26] VITALS: BP 187/82
[2024-03-09] MEDS ORDERED: Gabapentin 300 MG Cap PO SCH (21:00)
[2024-03-09] MEDS ORDERED: OxyCODONE 10/Acetamin 325 TABLET PO ONE (21:15)
[2024-03-09] MEDS ORDERED: Melatonin 5 MG Tablet PO ONE (21:45)
[2024-03-10 00:50] LABS: Bun/Creatinine Ratio 14.7 (12.0-20.0); Calcium, Blood 7.7 mg/dL (8.5-10.1); Creatinine, Blood 1.29 mg/dL (0.60-1.20)
[2024-03-10 02:55] VITALS: BP 192/80
--- NOTE | 2024-03-10 05:48 | NUR ---
NOS SUMMARY- [facility] RN CAME TO REMOVE PT'S SUPRA CATHATER BUT DID NOT REMOVE IT. RN STATED SINCE THERE WAS NO NOTE OR ORDER TO REMOVE SUPRA PUBIC CATH SHE WAS GOING TO WAIT TIL DAYSHIFT. PT ISSA IS DRAINING TO GRAVITY WITHOUT ISSUE. PT HAS RESTED COMFORTABLY WITHOUT ISSUE. PT IS EAGER TO GO HOME. CALL LIGHT IN REACH.
[2024-03-10 07:26] VITALS: BP 175/69
[2024-03-10] MEDS ORDERED: HydrALAZINE HCl 25 MG Tab PO SCH (08:00)
[2024-03-10] MEDS ORDERED: Lisinopril 20 MG Tab PO SCH (09:00)
[2024-03-10] MEDS ORDERED: Gabapentin 300 MG Cap PO ONE (09:55)
--- NOTE | 2024-03-10 12:45 | NUR ---
PATIENT WITH DISCHARGE ORDER IN PLACE. DR. PROCTOR ORDERED TO REMOVE DISPLACED SUPRAPUBIC CATH TODAY PRIOR TO DISCHARGE. ALSO REQUESTED PLACE ORDERS FOR DRESSING TO SITE AND AFTER CARE POST REMOVAL. CALLED DR WOODWARD'S OFFICE X4 THIS AFTERNOON AND UNABLE TO REACH FIXER SUPERVISOR. LEFT MESSAGE REQUESTING RETURN CALL. ESCALATED TO CHARGE NURSE AND CALLED SHELLEY FL[facility]IAN [facility] AND SHE STATED RIP IS IN [place] TODAY BUT SHE WILL INFORM HIS PA TO ORDER DRESSING CHANGES.
[2024-03-10] MEDS ORDERED: Gabapentin 300 MG Cap PO SCH (14:00)
--- NOTE | 2024-03-10 14:20 | NUR ---
RECIEVED ORDERS FROM 'S OFFICE FOR WOUND CARE POST SUPRAPUBIC CATH REMOVAL. WILL UPDATE ORDERS. NURSING STAFF ON MEDICAL FLOOR TO REMOVE.
--- NOTE | 2024-03-10 14:54 | NUR ---
HEAD SCORER ENTERED ROOM TO REMOVE SUPRAPUBIC INDWELLING CATHETER, HOWEVER AFTER ROMOVING BLANKET AND SEEING UROSTOMY BAG, MEPILEX COVERING A PRIMARY DRESSING WITH WHAT APPEARS TO BE STICHING THREAD STICKING OUT OF DRESSING AND A 12 F MAC LOCK TUBE OF SOME SORT, THIS HEAD SCORER CONTACTED DR PROCTOR TO INFORM THERE IS NO NURSE ON THIS FLOOR FAMILIAR WITH THIS TYPE OF TUBE REMOVAL. DR PROCTOR STATES HE HAS NOTIFIED DR ERWIN BY [employer]ICEM[employer] AND DR ERWIN WILL NEED TO BE THE ONE TO REMOVE IT. ANIVAL HERR NOTIFIED DR ERWIN WILL NEED TO REMOVE CURRENT DRAIN IF HE WANTS IT REMOVED. LEFT MESSAGE AT VASCULAR OFFICE FOR DR ERWIN THAT THIS DRAIN CANNOT BE REMOVED BY CURRENT STAFF AT [facility] AND FOR RIP TO REMOVE IF THAT IS WHAT HE WANTS DONE. BI AT VASCULAR OFFICE V/U AND STATES HE WILL CONTACT DR SPENCER OFFICE. SPOKE WITH BI
[2024-03-10 15:25] VITALS: BP 142/118
[2024-03-10] MEDS ORDERED: ZESTRIL40 M1 PO (15:44)
[2024-03-10] MEDS ORDERED: HYDRA25 PO (15:44)
[2024-03-10] MEDS ORDERED: MIRALAX17 GM PO (15:45)
[2024-03-10] MEDS ORDERED: VISBIOME 112.51 EACH PO (15:46)
--- NOTE | 2024-03-10 15:46 | NUR ---
RECEIVED A PHONE CALL FROM BI AND THE IR OFFICE ABOUT PT IN 305. PLAN FOR DR. FONSECA TO COME SEE PT AND POSSIBLY REMOVE SP CATH.
[2024-03-10] MEDS ORDERED: AMOCLA875 PO (15:47)
--- NOTE | 2024-03-10 15:47 | NUR ---
DR. FONSECA AT BEDSIDE TO REMOVE PATIENT'S SUPRAPUBIC CATHETER. STITCHES REMOVED AND DRESSING PLACED BY THIS RN. AWAITING PATIENT'S TRANSPORTATION FOR DISCHARGE.
--- NOTE | 2024-03-10 16:22 | NUR ---
DISCHARGE NOTE PATIENT A/OX4, ABLE TO MAKE NEEDS KNOWN. SUPRABPUBIC CATH REMOVED PRIOR TO DISCHARGE BY DR. FONSECA. DRESSING PLACED PER ORDERS. PATIENT WITH ISSA CATHETER IN PLACE, DRAINING YELLOW URINE. NO ISSUES NOTED. PIV REMOVED AND ASSISTED TO ELECTRIC WHEELCHAIR AND ASSISTED TO SIGNIFICANT OTHER'S VEHICLE FOR TRANSPORTATION. ALL DISCHARGE INSTRUCTIONS PROVIDED AND PATIENT AND SIGNIFICANT OTHER WITH NO QUESTIONS AT TIME OF DISCHARGE. PATIENT REQUESTED MEDICATIONS BE FAXED TO [facility], FAXED BY THIS RN POST DISCHARGE. NO OTHER CONCERNS.
[2024-03-10] MEDS ORDERED: Melatonin 5 MG Tablet PO SCH (21:00)
[2024-03-10] MEDS ORDERED: Vancomycin HCL 750 MG in NS 250 ML IV SCH (23:00)
== END 2024-03-10 16:38 | disposition home or self-care (01) | DRG 392 ==
LOC: ER 22:29 → MEDS 03-06 04:22 → ERHOLD 03-06 04:22 → MEDS 03-06 11:56 → ENPENDDIS 03-10 11:33 → MEDS 03-10 16:38
PROVIDERS: Emergency Medicine; Internal Medicine; ADMIT Student in an Organized Health Care Education/Training Program
DX: K59.00 Constipation, unspecified (principal); E86.0 Dehydration; Z88.8 Allergy status to other drugs, medicaments and biological substances; Z91.041 Radiographic dye allergy status; Z79.899 Other long term (current) drug therapy; Z79.82 Long term (current) use of aspirin; E11.22 Type 2 diabetes mellitus with diabetic chronic kidney disease; N18.9 Chronic kidney disease, unspecified; I12.9 Hypertensive chronic kidney disease with stage 1 through stage 4 chronic kidney disease, or unspecified chronic kidney disease; K21.9 Gastro-esophageal reflux disease without esophagitis; I48.91 Unspecified atrial fibrillation
CPT/HCPCS: 0202U; 36415; 72192; 74176; 80048; 80053; 80202; 81001; 82533; 82607; 82746; 82947; 83690; 83735; 83930; 83935; 84300; 84443; 85025; 85027; 87040; 87077; 87086; 87186; 96361; 96365; 96375; 97161; 97530; 99285-25; A9270; J0360; J0696; J1170; J1650; J2270; J2405; J2470; J3010; J3370; J7030; J7040; J7050

== ENCOUNTER 2024-05-01 06:50 | Day surgery (SDC) | payer OTHER ==
[~2024-05-01] VITALS: Ht 172.7 cm; Wt 79.0 kg
[2024-05-01] VITALS (9 sets, daily range): BP systolic 139–199; BP diastolic 63–96
[~2024-05-01 06:50] MED LIST changes: +AMOCLA875 PO; +ASPI325 PO; +BUPR75 PO; +C COMPLEX1000 M1 PO; +Flonase 0.05% N16 GM; +HYDRA25 PO; +Lopressor 25 mg25 MG PO; +MIRALAX17 GM PO; +MYLANTA GAS MIN42 MG PO; +VISBIOME 112.51 EACH PO; +ZESTRIL40 M1 PO
[2024-05-01] MEDS ORDERED: NS 500 ML IV ONE (07:23)
[2024-05-01] MEDS ORDERED: Heparin Sodium 1000 Units/ML 10ML MDV ONE (07:23)
[2024-05-01] MEDS ORDERED: NS 1,000 ML IV ONE ×2 (07:23→07:39)
[2024-05-01] MEDS ORDERED: Nitroglycerin 2 MG/20 ML BTL ONE (07:24)
[2024-05-01] MEDS ORDERED: Hydrocortisone Sod Succinate 100 MG Vial ONE (07:39)
[2024-05-01] MEDS ORDERED: DiphenhydrAMINE HCl 50 MG/ML 1ML Vial ONE (07:39)
[2024-05-01] MEDS ORDERED: Famotidine 10 MG/ML 2ML Vial ONE (07:40)
[2024-05-01] MEDS ORDERED: Midazolam HCl 1MG / ML 2ML Vial ONE (08:26)
[2024-05-01] MEDS ORDERED: FentaNYL Citrate 50 MCG/ML 2 ML Injection ONE (08:27)
[2024-05-01] MEDS ORDERED: HydrALAZINE HCl 20 MG / ML 1ML Vial ONE (09:47)
--- NOTE | 2024-05-01 10:20 | NUR ---
PT RETURNED TO RECOVERY ROOM IN BED. RIGHT FEMORAL GROIN SITE SOFT NON-TENDER WITH NO HEMATOMA, NO PULSATILE BLEEDING AND INTACT DRESSING. LEFT DP DOPPLER PULSE. LEFT PT ACCESS SITE SOFT NON-TENDER WITH NO HEMATOMA,NO PULSATILE BLEEDING AND INTACT PRESSURE DRESSING. CALL LIGHT IN REACH.
--- NOTE | 2024-05-01 10:41 | NUR ---
DR ERWIN ASSESSED RIGHT FEMORAL GROIN SITE; R FEM GROIN SITE SITLL SOFT NON-TENDER WITH NO HEMATOMA,NO PULSATILE BLEEDING AND INTACT DRESSING. NO CHANGES TO LEFT PT SITE. LEFT DP STILL DOPPLER PULSE.
--- NOTE | 2024-05-01 11:38 | NUR ---
NO CHANGES TO L ULNAR SITE. PT AMBULATED TO BR TO VOID. CALL LIGHT IN REACH.
--- NOTE | 2024-05-01 12:52 | NUR ---
NO CHANGES TO R FEM GROIN SITE. NO CHANGES TO L PT SITE EXCEPT SLIGHT TRACK OOZING. BOTH SITES DRESSINGS INTACT. DISCHARGE INSTRUCTIONS REVIEWED WITH PT AND CAREGIVER [place]. ALL QUESTIONS ANSWERED. 20 G IV DISCONTINUED FROM LEFT FA WITH INTACT CANNULA. PT ESCORTED OUT VIA WHEELCHAIR ESCORT.
[2024-05-11] MEDS ORDERED: PANT20 PO (13:15)
[2024-05-11] MEDS ORDERED: FURO20 PO (13:16)
[2024-05-11] MEDS ORDERED: GABA300 PO (13:16)
[2024-05-11] MEDS ORDERED: OXYC5 PO (22:08)
== END 2024-05-01 13:58 | disposition home or self-care (01) ==
LOC: MHTC 06:50
DX: E11.51 Type 2 diabetes mellitus with diabetic peripheral angiopathy without gangrene (principal); I70.222 Atherosclerosis of native arteries of extremities with rest pain, left leg; I10 Essential (primary) hypertension; G89.29 Other chronic pain; F17.210 Nicotine dependence, cigarettes, uncomplicated; N40.0 Benign prostatic hyperplasia without lower urinary tract symptoms; R39.9 Unspecified symptoms and signs involving the genitourinary system; L97.529 Non-pressure chronic ulcer of other part of left foot with unspecified severity; Z91.041 Radiographic dye allergy status
CPT/HCPCS: 36200; 36247; 75625; 75716; 75774; 76937; 85347; 99152; 99153; C1725; C1760; C1769; C1887; C1894; C9764; C9772; J0360; J1200; J1644; J1720; J2250; J3010; J7030; J7050; Q9967

== ENCOUNTER 2024-05-08 01:21 | Day surgery (SDC) | payer OTHER ==
[2024-05-06 11:49] LABS: BASOPHILS ABSOLUTE AUTO 0.02 K/mm3 (0.00-0.23); BASOPHILS PERCENT AUTO 0 % (0-2); EOSINOPHILS ABSOLUTE AUTO 0.52 K/mm3 (0.00-0.68); EOSINOPHILS PERCENT AUTO 8 % (0-6); Hematocrit 24.1 % (37.0-53.0); Hemoglobin 8.3 g/dL (13.5-17.5); IMMATURE GRAN ABSOLUTE AUTO 0.03 K/mm3 (0.00-0.10); IMMATURE GRAN PERCENT AUTO 1 % (0-1); LYMPHOCYTES ABSOLUTE AUTO 1.23 K/mm3 (0.84-5.20); LYMPHOCYTES PERCENT AUTO 20 % (21-46); MONOCYTES ABSOLUTE AUTO 0.62 K/mm3 (0.16-1.47); MONOCYTES PERCENT AUTO 10 % (4-13); Mean Corpuscular HGB 34.7 pg (26.0-34.0); Mean Corpuscular HGB Conc 34.4 g/dL (31.5-36.5); Mean Corpuscular Volume 101 fL (80-100); Mean Platelet Volume 10.3 fL (9.1-12.4); NEUTROPHILS ABSOLUTE AUTO 3.85 K/mm3 (1.96-9.15); NEUTROPHILS PERCENT AUTO 61 % (41-73); Platelet Count 172 K/mm3 (150-400); RDW Coefficient Variation 12.3 % (11.7-14.2); RDW Standard Deviation 45.1 fL (35.1-46.3); Red Blood Cell Count 2.39 M/mm3 (4.30-5.90); White Blood Cell Count 6.27 K/mm3 (4.00-11.30)
[2024-05-06 11:57] LABS: International Normalized Ratio 1.12; Prothrombin Time Results 11.9 Sec (9.7-11.5)
[2024-05-06 14:23] LABS: Albumin, Blood 2.8 g/dL (3.4-5.0); Albumin/Globulin Ratio 0.7 (0.8-1.8); Bilirubin, Total 0.4 mg/dL (0.1-1.0); Bun/Creatinine Ratio 19.7 (12.0-20.0); Calcium, Blood 11.2 mg/dL (8.5-10.1); Creatinine, Blood 2.28 mg/dL (0.60-1.20); Potassium, Blood 4.5 mmol/L (3.5-5.5); Total Protein, Blood 6.8 g/dL (6.4-8.2)
[2024-05-08] MEDS ORDERED: NS 250 ML IV SCH (06:45)
[2024-05-08 07:31] VITALS: BP 155/96
[2024-05-08 07:49] VITALS: BP 158/72
[2024-05-08 08:48] VITALS: BP 173/75
[2024-05-08 09:46] VITALS: BP 153/67
--- NOTE | 2024-05-08 10:10 | NUR ---
PT WITH INSP CRACKLES TO LEFT BASE PRE AND POST TRANSFUSION TODAY.
== END 2024-05-08 09:49 | disposition home or self-care (01) ==
LOC: ATC 01:21
PROVIDERS: Internal Medicine Hematology & Oncology
DX: C61 Malignant neoplasm of prostate (principal); D64.9 Anemia, unspecified; I12.9 Hypertensive chronic kidney disease with stage 1 through stage 4 chronic kidney disease, or unspecified chronic kidney disease; E11.22 Type 2 diabetes mellitus with diabetic chronic kidney disease; N18.32 Chronic kidney disease, stage 3b; E78.5 Hyperlipidemia, unspecified
CPT/HCPCS: 36415; 80053; 85025; 85610; 85730; 86850; 86900; 86901; 86923; J7050; P9016

== ENCOUNTER → 2024-05-19 | Outpatient (CLI) | payer OTHER ==
[~2024-05-19] MED LIST changes: +OXYC5 PO
== END | disposition home or self-care (01) ==
LOC: LAB SHORT 11:37 → LAB 11:37
DX: L08.0 Pyoderma (principal)
CPT/HCPCS: 87070; 87077; 87147; 87186; 87205

== ENCOUNTER 2024-06-19 10:58 | Inpatient (IN) | payer OTHER ==
[~2024-06-19] VITALS: Ht 172.7 cm; Wt 71.5 kg
[2024-06-19 11:35] LABS: BASOPHILS ABSOLUTE AUTO 0.02 K/mm3 (0.00-0.23); BASOPHILS PERCENT AUTO 0 % (0-2); EOSINOPHILS ABSOLUTE AUTO 0.16 K/mm3 (0.00-0.68); EOSINOPHILS PERCENT AUTO 2 % (0-6); Hematocrit 29.4 % (37.0-53.0); Hemoglobin 10.2 g/dL (13.5-17.5); IMMATURE GRAN ABSOLUTE AUTO 0.02 K/mm3 (0.00-0.10); IMMATURE GRAN PERCENT AUTO 0 % (0-1); LYMPHOCYTES PERCENT AUTO 15 % (21-46); MONOCYTES ABSOLUTE AUTO 0.57 K/mm3 (0.16-1.47); MONOCYTES PERCENT AUTO 9 % (4-13); Mean Corpuscular HGB 33.9 pg (26.0-34.0); Mean Corpuscular HGB Conc 34.7 g/dL (31.5-36.5); Mean Corpuscular Volume 98 fL (80-100); Mean Platelet Volume 9.3 fL (9.1-12.4); NEUTROPHILS PERCENT AUTO 73 % (41-73); Platelet Count 161 K/mm3 (150-400); RDW Standard Deviation 46.4 fL (35.1-46.3); Red Blood Cell Count 3.01 M/mm3 (4.30-5.90); White Blood Cell Count 6.57 K/mm3 (4.00-11.30)
[2024-06-19 11:51] LABS: Albumin, Blood 2.9 g/dL (3.4-5.0); Albumin/Globulin Ratio 0.6 (0.8-1.8); Bilirubin, Total 0.3 mg/dL (0.1-1.0); Bun/Creatinine Ratio 15.9 (12.0-20.0); Calcium, Blood 8.8 mg/dL (8.5-10.1); Creatinine, Blood 1.7 mg/dL (0.60-1.20); Globulin, Blood 4.9 g/dL (2.2-4.0); Potassium, Blood 5.1 mmol/L (3.5-5.5); Total Protein, Blood 7.8 g/dL (6.4-8.2)
[2024-06-19] MEDS ORDERED: NS 1,000 ML IV SCH ×2 (12:10→15:00)
[2024-06-19] MEDS ORDERED: Cefepime HCl 1,000 MG in NS 100 ML IV ONE (13:00)
[2024-06-19] MEDS ORDERED: Vancomycin HCL 2,000 MG in NS 520 ML IV ONE (13:00)
[2024-06-19] MEDS ORDERED: OxyCODONE HCL 5 MG TAB PO PRN (14:45)
[2024-06-19] MEDS ORDERED: Ondansetron 4 MG TAB PO PRN (14:50)
[2024-06-19] MEDS ORDERED: FLU VACC TS2024-25(6MOS UP)/PF 45 MCG/0.5 ML SYRINGE IM SCH (14:50)
[2024-06-19 15:43] VITALS: BP 187/73
[2024-06-19] MEDS ORDERED: Zinc Oxide Ointment 30 GM TOP SCH (17:00)
[2024-06-19 17:13] LABS: International Normalized Ratio 1.12; Prothrombin Time Results 11.9 Sec (9.7-11.5)
[2024-06-19 17:17] LABS: Cholesterol 112 mg/dL (50-200); Triglycerides 78 mg/dL (30-160)
[2024-06-19] MEDS ORDERED: Furosemide 20 MG Tab PO SCH (18:00)
[2024-06-19 19:41] VITALS: BP 158/61
[2024-06-19] MEDS ORDERED: Gabapentin 300 MG Cap PO SCH (20:31)
[2024-06-19] MEDS ORDERED: Gabapentin 100 MG Cap PO SCH (21:00)
[2024-06-20] VITALS (14 sets, daily range): BP systolic 120–156; BP diastolic 45–70
[2024-06-20] MEDS ORDERED: Pantoprazole Sodium 20 MG Tab PO SCH (06:00)
[2024-06-20 06:03] LABS: BASOPHILS ABSOLUTE AUTO 0.01 K/mm3 (0.00-0.23); BASOPHILS PERCENT AUTO 0 % (0-2); EOSINOPHILS ABSOLUTE AUTO 0.27 K/mm3 (0.00-0.68); EOSINOPHILS PERCENT AUTO 7 % (0-6); Hemoglobin 9.6 g/dL (13.5-17.5); IMMATURE GRAN ABSOLUTE AUTO 0.02 K/mm3 (0.00-0.10); IMMATURE GRAN PERCENT AUTO 1 % (0-1); LYMPHOCYTES ABSOLUTE AUTO 0.37 K/mm3 (0.84-5.20); LYMPHOCYTES PERCENT AUTO 10 % (21-46); MONOCYTES ABSOLUTE AUTO 0.29 K/mm3 (0.16-1.47); MONOCYTES PERCENT AUTO 8 % (4-13); Mean Corpuscular HGB Conc 35.6 g/dL (31.5-36.5); Mean Corpuscular Volume 96 fL (80-100); Mean Platelet Volume 9.6 fL (9.1-12.4); NEUTROPHILS ABSOLUTE AUTO 2.83 K/mm3 (1.96-9.15); NEUTROPHILS PERCENT AUTO 75 % (41-73); Platelet Count 125 K/mm3 (150-400); RDW Standard Deviation 45.1 fL (35.1-46.3); Red Blood Cell Count 2.82 M/mm3 (4.30-5.90); White Blood Cell Count 3.79 K/mm3 (4.00-11.30)
[2024-06-20 06:21] LABS: Albumin, Blood 2.3 g/dL (3.4-5.0); Albumin/Globulin Ratio 0.6 (0.8-1.8); Bilirubin, Total 0.5 mg/dL (0.1-1.0); Bun/Creatinine Ratio 13.2 (12.0-20.0); Calcium, Blood 8.2 mg/dL (8.5-10.1); Creatinine, Blood 1.36 mg/dL (0.60-1.20); Potassium, Blood 4.1 mmol/L (3.5-5.5); Total Protein, Blood 6.3 g/dL (6.4-8.2)
[2024-06-20] MEDS ORDERED: propofoL 20 ML IV ONE (07:18)
[2024-06-20] MEDS ORDERED: Bupivacaine 0.5% HCl 5 MG/ML 30MLVIAL ONE (07:55)
[2024-06-20] MEDS ORDERED: propofoL 50 ML IV ONE (08:06)
[2024-06-20] MEDS ORDERED: AmLODIPine Besylate 5 MG Tab PO SCH (09:00)
[2024-06-20] MEDS ORDERED: BuPROPion HCl 75 MG Tab PO SCH (09:00)
[2024-06-20] MEDS ORDERED: BusPIRone HCl 10 MG Tab PO SCH (09:00)
[2024-06-20] MEDS ORDERED: Metoprolol Tartrate 25 MG Tab PO SCH (09:00)
[2024-06-20] MEDS ORDERED: Vancomycin HCL 1,000 MG in NS 250 ML IV SCH (13:00)
[2024-06-20] MEDS ORDERED: FentaNYL Citrate 50 MCG/ML 2 ML Injection IV PRN (14:00)
[2024-06-20] MEDS ORDERED: Gabapentin 300 MG Cap PO SCH (21:00)
[2024-06-21 04:41] LABS: BASOPHILS ABSOLUTE AUTO 0.01 K/mm3 (0.00-0.23); BASOPHILS PERCENT AUTO 0 % (0-2); EOSINOPHILS ABSOLUTE AUTO 0.32 K/mm3 (0.00-0.68); EOSINOPHILS PERCENT AUTO 8 % (0-6); Hematocrit 23.2 % (37.0-53.0); Hemoglobin 7.9 g/dL (13.5-17.5); IMMATURE GRAN ABSOLUTE AUTO 0.01 K/mm3 (0.00-0.10); IMMATURE GRAN PERCENT AUTO 0 % (0-1); LYMPHOCYTES ABSOLUTE AUTO 0.74 K/mm3 (0.84-5.20); LYMPHOCYTES PERCENT AUTO 19 % (21-46); MONOCYTES ABSOLUTE AUTO 0.49 K/mm3 (0.16-1.47); MONOCYTES PERCENT AUTO 13 % (4-13); Mean Corpuscular HGB 33.3 pg (26.0-34.0); Mean Corpuscular HGB Conc 34.1 g/dL (31.5-36.5); Mean Corpuscular Volume 98 fL (80-100); Mean Platelet Volume 9.4 fL (9.1-12.4); NEUTROPHILS ABSOLUTE AUTO 2.25 K/mm3 (1.96-9.15); NEUTROPHILS PERCENT AUTO 59 % (41-73); Platelet Count 110 K/mm3 (150-400); RDW Coefficient Variation 13.2 % (11.7-14.2); RDW Standard Deviation 46.7 fL (35.1-46.3); Red Blood Cell Count 2.37 M/mm3 (4.30-5.90); White Blood Cell Count 3.82 K/mm3 (4.00-11.30)
[2024-06-21 05:01] LABS: Albumin, Blood 2.3 g/dL (3.4-5.0); Albumin/Globulin Ratio 0.6 (0.8-1.8); Bilirubin, Total 0.4 mg/dL (0.1-1.0); Bun/Creatinine Ratio 11.1 (12.0-20.0); Calcium, Blood 7.7 mg/dL (8.5-10.1); Creatinine, Blood 1.44 mg/dL (0.60-1.20); Globulin, Blood 3.7 g/dL (2.2-4.0); Potassium, Blood 3.8 mmol/L (3.5-5.5)
[2024-06-21 07:24] VITALS: BP 165/65
[2024-06-21] MEDS ORDERED: Clopidogrel Bisulfate 75 MG Tab PO SCH (09:00)
[2024-06-21] MEDS ORDERED: Aspirin 325 MG Tab PO SCH (09:00)
[2024-06-21] MEDS ORDERED: CLIN150 PO (11:36)
[2024-06-21] MEDS ORDERED: VISBIOME 112.51 EACH PO (11:36)
== END 2024-06-21 11:59 | disposition home health service (06) | DRG 256 ==
LOC: ER 10:58 → SURS 10:59 → ER 06-20 08:00 → SURS 06-20 14:48
PROVIDERS: Podiatrist Foot & Ankle Surgery; Student in an Organized Health Care Education/Training Program; ADMIT Internal Medicine
PROC: 0Y6Y0Z0 Detachment at Left 5th Toe, Complete, Open Approach (ICD-10-PCS; 2024-06-20)
PROC: 0Y6W0Z0 Detachment at Left 4th Toe, Complete, Open Approach (ICD-10-PCS; 2024-06-20)
PROC: 0Y6U0Z0 Detachment at Left 3rd Toe, Complete, Open Approach (ICD-10-PCS; 2024-06-20)
PROC: 0Y6S0Z0 Detachment at Left 2nd Toe, Complete, Open Approach (ICD-10-PCS; 2024-06-20)
PROC: 0Y6Q0Z0 Detachment at Left 1st Toe, Complete, Open Approach (ICD-10-PCS; principal; 2024-06-20 08:00)
DX: E11.52 Type 2 diabetes mellitus with diabetic peripheral angiopathy with gangrene (principal); I96 Gangrene, not elsewhere classified; L97.929 Non-pressure chronic ulcer of unspecified part of left lower leg with unspecified severity; K21.9 Gastro-esophageal reflux disease without esophagitis; Z66 Do not resuscitate; E11.51 Type 2 diabetes mellitus with diabetic peripheral angiopathy without gangrene; I48.91 Unspecified atrial fibrillation; N40.0 Benign prostatic hyperplasia without lower urinary tract symptoms; F17.290 Nicotine dependence, other tobacco product, uncomplicated; I25.2 Old myocardial infarction; Z89.511 Acquired absence of right leg below knee; Z98.49 Cataract extraction status, unspecified eye; Z85.828 Personal history of other malignant neoplasm of skin; Z79.899 Other long term (current) drug therapy; Z79.82 Long term (current) use of aspirin; Z79.02 Long term (current) use of antithrombotics/antiplatelets; Z88.8 Allergy status to other drugs, medicaments and biological substances
CPT/HCPCS: 36415; 73630; 80053; 82465; 83036; 83605; 84478; 85025; 85610; 85651; 85730; 86140; 96361; 96365; 96366; 96367; 96376; 97161; 97530; 99285-25; A9270; G0378; J0692; J2470; J2704; J3010; J3370; J7030; J7040; J7050

== ENCOUNTER → 2024-07-06 | Outpatient (CLI) | payer OTHER ==
[~2024-07-06] MED LIST changes: +CLIN150 PO
[2024-07-06 12:25] LABS: Creatinine Urine 49.4 mg/dL (27.00-270.00); Protein, Urine Quantitative 113.8 mg/dL (0.0-11.9)
== END ==
LOC: LAB SHORT 10:11 → LAB 10:11 → LAB FUT 07-03 11:25
PROVIDERS: Internal Medicine Nephrology
DX: N18.30 Chronic kidney disease, stage 3 unspecified (principal); D63.1 Anemia in chronic kidney disease; N28.81 Hypertrophy of kidney; E55.9 Vitamin D deficiency, unspecified; E78.00 Pure hypercholesterolemia, unspecified; R76.9 Abnormal immunological finding in serum, unspecified; R94.5 Abnormal results of liver function studies; R94.6 Abnormal results of thyroid function studies; D51.8 Other vitamin B12 deficiency anemias; D52.8 Other folate deficiency anemias; D50.9 Iron deficiency anemia, unspecified
CPT/HCPCS: 81050; 82043; 82570; 84156

== ENCOUNTER 2024-10-21 14:19 | Emergency (ER) | payer OTHER ==
[~2024-10-21] VITALS: Ht 172.7 cm; Wt 67.6 kg
[2024-10-21 19:30] VITALS: BP 165/58
== END 2024-10-21 20:32 | disposition home or self-care (01) ==
LOC: ER 14:19
DX: D64.9 Anemia, unspecified (principal); C61 Malignant neoplasm of prostate; E11.22 Type 2 diabetes mellitus with diabetic chronic kidney disease; I12.9 Hypertensive chronic kidney disease with stage 1 through stage 4 chronic kidney disease, or unspecified chronic kidney disease; N18.9 Chronic kidney disease, unspecified; I25.2 Old myocardial infarction; Z91.041 Radiographic dye allergy status; Z88.8 Allergy status to other drugs, medicaments and biological substances; Z79.899 Other long term (current) drug therapy; Z79.82 Long term (current) use of aspirin; Z89.511 Acquired absence of right leg below knee

== ENCOUNTER → 2024-10-21 | Outpatient (CLI) | payer OTHER ==
[2024-10-21 12:37] LABS: Prostate Specific Antigen 0.048 ng/mL (0.000-4.000)
== END | disposition home or self-care (01) ==
LOC: LAB SHORT 10:30 → LAB 10:30
PROVIDERS: Internal Medicine Hematology & Oncology
DX: C61 Malignant neoplasm of prostate (principal)
CPT/HCPCS: 84153

== ENCOUNTER 2025-01-12 09:06 | Inpatient (IN) | payer OTHER ==
[~2025-01-12] VITALS: Ht 180.3 cm; Wt 65.0 kg
[~2025-01-12 09:06] MED LIST changes: +FERROUS GLUCON324 M7 PO; +JARDIANCE10 MG PO; +MEGESTROL ACETA20 M1 PO; +PERCOCET PO; +Prinivil10 MG PO
[2025-01-12] MEDS ORDERED: Ondansetron HCl 2 MG / ML 2ML Vial IV ONE (09:30)
[2025-01-12] MEDS ORDERED: FentaNYL Citrate 50 MCG/ML 2 ML Injection IV ONE (09:30)
[2025-01-12 11:00] LABS: Alanine Aminotransfer (ALT/SGP 89.0 U/L (12-78); Albumin, Blood 1.9 g/dL (3.4-5.0); Albumin/Globulin Ratio 0.5 (0.8-1.8); Anion Gap 5.0 mmol/L (3-11); Aspartate Aminotrans (AST/SGOT 21.0 U/L (12-37); Bilirubin, Total 0.4 mg/dL (0.1-1.0); Blood Urea Nitrogen 57.0 mg/dL (8-24); CO2, Blood 27.0 mmol/L (21-32); Calcium, Blood 7.8 mg/dL (8.5-10.1); Chloride, Blood 102.0 mmol/L (98-108); Creatinine, Blood 2.18 mg/dL (0.60-1.20); Globulin, Blood 4.1 g/dL (2.2-4.0); Glucose, Blood 109.0 mg/dL (70-99); Potassium, Blood 4.2 mmol/L (3.5-5.5); Sodium, Blood 130.0 mmol/L (136-145); Total Protein, Blood 6.0 g/dL (6.4-8.2)
[2025-01-12 11:00] LABS: Hematocrit 26.8 % (37.0-53.0); Hemoglobin 9.1 g/dL (13.5-17.5); Mean Corpuscular HGB Conc 34.0 g/dL (31.5-36.5); Mean Corpuscular Volume 91 fL (80-100); NRBC ABSOLUTE 0.02 K/mm3 (0.00-0.02); NRBC Auto 2.5 /100 WBC (0.0-0.2); RDW Coefficient Variation 15.1 % (11.7-14.2); RDW Standard Deviation 49.5 fL (35.1-46.3)
[2025-01-12 11:03] LABS: BASOPHILS ABSOLUTE AUTO 0.01 K/mm3 (0.00-0.23); BASOPHILS PERCENT AUTO 1 % (0-2); EOSINOPHILS ABSOLUTE AUTO 0.06 K/mm3 (0.00-0.68); EOSINOPHILS PERCENT AUTO 8 % (0-6); IMMATURE GRAN ABSOLUTE AUTO 0.04 K/mm3 (0.00-0.10); IMMATURE GRAN PERCENT AUTO 5 % (0-1); LYMPHOCYTES ABSOLUTE AUTO 0.36 K/mm3 (0.84-5.20); LYMPHOCYTES PERCENT AUTO 45 % (21-46); MONOCYTES ABSOLUTE AUTO 0.22 K/mm3 (0.16-1.47); MONOCYTES PERCENT AUTO 28 % (4-13); NEUTROPHILS ABSOLUTE AUTO 0.11 K/mm3 (1.96-9.15); NEUTROPHILS PERCENT AUTO 14 % (41-73)
[2025-01-12 11:09] LABS: Platelet Count 98 K/mm3 (150-400)
[2025-01-12 11:18] LABS: BASOPHILS ABSOLUTE MAN 0.00 K/mm3 (0.00-0.23); BASOPHILS PERCENT MAN 0 % (0-2)
[2025-01-12 11:23] LABS: EOSINOPHILS ABSOLUTE MAN 0.03 K/mm3 (0.00-0.68); EOSINOPHILS PERCENT MAN 4 % (0-6); LYMPHOCYTES ABSOLUTE MAN 0.51 K/mm3 (0.84-5.20); LYMPHOCYTES PERCENT MAN 64 % (21-46); MONOCYTES ABSOLUTE MAN 0.16 K/mm3 (0.16-1.47); MONOCYTES PERCENT MAN 20 % (4-13); NEUTROPHILS ABSOLUTE MAN 0.09 K/mm3 (1.96-9.15); SEG NEUTROPHILS PERCENT MAN 12 % (41-73)
[2025-01-12] MEDS ORDERED: VANCOMYCIN IV SCH (12:30)
[2025-01-12] MEDS ORDERED: Piperacillin/Tazobactam Sod 3.375 GM in NS 100 ML IV ONE (12:30)
[2025-01-12 12:32] LABS: Source, Urine Foley catheter
--- NOTE | 2025-01-12 12:33 | NUR ---
MET WITH PATIENT AND HIS BROTHER ALLEN. ADRIAN LEFT THE HOSPITAL ON HOSPICE AFTER [facility] ADMISSION TO [facility]. SHORTLY AFTERWARDS PATIENT REVOKED HOSPICE AND DECIDED TO PRUSUE CURATIVE TREATMENT. ANG FROM [facility] DISCUSSED HOSPICE WITH PATIENTS BROTHER. PATIENT PASSED COG SCREEN LAST ADMISSION AND IS STILL ABLE TO MAKE HIS CHOICES FOR TREATMENT. DISCUSSED WITH ED TEXTILE PIN WORKER ROSALIND AND DR. LEROY. PATIENT WILL BE ADMITED, TREATED AND WILL MONITOR FOR CLEARED MENTATION.
[2025-01-12 12:53] LABS: Bilirubin, Urine Neg (Neg); Color, Urine Yellow (P-Yellow); Glucose Qualitative, Urine 2+ (Neg); Ketones, Urine Neg (Neg); Leukocyte Esterase, Urine 2+ (Neg); Protein, Urine 3+ (Neg); Specific Gravity, Urine 1.010 (1.003-1.022); Urobilinogen, Urine NORM (Normal)
[2025-01-12 13:12] LABS: Yeast/Fungi Urine Many /hpf
[2025-01-12 13:13] LABS: Red Blood Cells, Urine 0-2 /hpf (0-2)
[2025-01-12] MEDS ORDERED: Vancomycin (Pharmacy Consult) IV SCH (14:10)
--- NOTE | 2025-01-12 15:29 | NUR ---
RECEIVED REPORT FROM JOE BARON RN
[2025-01-12 15:57] VITALS: BP 110/73
[2025-01-12] MEDS ORDERED: Insulin Regular 100 UNIT/ML 10ML Vial SC SCH (16:30)
[2025-01-12] MEDS ORDERED: Piperacillin/Tazobactam Sod 2.25 GM in NS 50 ML IV SCH (18:00)
[2025-01-12 19:33] VITALS: BP 106/60
[2025-01-12] MEDS ORDERED: NS 250 ML IV PRN (21:00)
[2025-01-12] MEDS ORDERED: Heparin Sodium,Porcine 5,000 UNIT/0.5 ML SDV SC SCH (21:00)
[2025-01-12] MEDS ORDERED: Lactobacil 2-S.Thermo-Bifido 1 1 Cap PO SCH (21:00)
[2025-01-12] MEDS ORDERED: Morphine Sulfate 4 MG/1 ML Injection IV PRN (22:45)
--- NOTE | 2025-01-13 01:55 | NUR ---
SHIFT SUMMARY: PT IS AOX1-2. PT IS ON A FACEMASK WITH 2L O2. PT HAS A WOUND ON COCCYX. CALL PLACED TO MD DURING THIS SHIFT TO GET IV PAIN MEDICATION. ONCE PAIN MEDS WERE GIVEN PT SLEPT THE REST OF THE SHIFT. PT HAS A ISSA THAT IS HANGING BELOW THE BLADDER AND DRAINING PROPERLY WITH YELLOW URINE OUTPUT. COCCYX MEPLEC CHANGED AND SEVERAL LOOSE STOOLS DURING THIS SHIFT. PT REPOSITIONED Q2.
[2025-01-13 04:49] VITALS: BP 104/66
[2025-01-13 05:10] LABS: Hematocrit 22.0 % (37.0-53.0); Hemoglobin 7.4 g/dL (13.5-17.5); Mean Corpuscular HGB Conc 33.6 g/dL (31.5-36.5); Mean Corpuscular Volume 91 fL (80-100); NRBC ABSOLUTE 0.00 K/mm3 (0.00-0.02); NRBC Auto 0.0 /100 WBC (0.0-0.2); Platelet Count 86 K/mm3 (150-400); RDW Coefficient Variation 15.1 % (11.7-14.2); RDW Standard Deviation 50.5 fL (35.1-46.3)
[2025-01-13 05:14] LABS: Alanine Aminotransfer (ALT/SGP 56 U/L (12-78); Albumin, Blood 1.5 g/dL (3.4-5.0); Albumin/Globulin Ratio 0.4 (0.8-1.8); Anion Gap 11 mmol/L (3-11); Aspartate Aminotrans (AST/SGOT 15 U/L (12-37); Bilirubin, Total 0.5 mg/dL (0.1-1.0); Blood Urea Nitrogen 49 mg/dL (8-24); CO2, Blood 24 mmol/L (21-32); Calcium, Blood 7.3 mg/dL (8.5-10.1); Chloride, Blood 106 mmol/L (98-108); Creatinine, Blood 2.15 mg/dL (0.60-1.20); Globulin, Blood 3.5 g/dL (2.2-4.0); Glucose, Blood 91 mg/dL (70-99); Potassium, Blood 4.2 mmol/L (3.5-5.5); Sodium, Blood 137 mmol/L (136-145); Total Protein, Blood 5.0 g/dL (6.4-8.2); Vancomycin, Random 17.7 ug/mL
--- NOTE | 2025-01-13 05:22 | NUR ---
CRITICAL LAB VALUE: LAB CALLED AT 0515 WITH A CRITICAL WBC OF 0.73. CALL PLACED TO MD. NO NEW ORDERS. CHARGE NURSE NOTIFIED WELL
[2025-01-13 05:47] LABS: BASOPHILS ABSOLUTE MAN 0.00 K/mm3 (0.00-0.23); BASOPHILS PERCENT MAN 0 % (0-2); EOSINOPHILS ABSOLUTE MAN 0.00 K/mm3 (0.00-0.68); EOSINOPHILS PERCENT MAN 0 % (0-6); LYMPHOCYTES ABSOLUTE MAN 0.29 K/mm3 (0.84-5.20); LYMPHOCYTES PERCENT MAN 40 % (21-46); MONOCYTES ABSOLUTE MAN 0.43 K/mm3 (0.16-1.47); MONOCYTES PERCENT MAN 60 % (4-13)
[2025-01-13 07:59] VITALS: BP 125/54
--- NOTE | 2025-01-13 14:08 | NUR ---
THIS PATIENT IS AN 84 Y.O. WHO WAS SEEN IN THE ED AND ADMITTED ON 01/12 WITH INCREASED WEAKNESS AND CONFUSION. 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 THE FOOT HAS NEVER FULLY HEALED SINCE THEN. COMORBIDITIES INCLUDE: CKD, DM TYPE 2, HTN, PAD, LUPUS AND A-FIB. HE WAS HOSPITALIZED AGAIN IN NOVEMBER 2024 BEFORE BEING TRANSFERRED TO [facility] WITH HOSPICE. HE THEN DECIDED TO UN-ENROLL FROM HOSPICE AND RETURN TO HIS INDEPENDENT LIVING APARTMENT AT [facility]. UNFORTUNATELY, THE PATIENT ALSO BEGAN TO EXPERIENCE FALLS AT HOME, AND C/O INCREASING PAIN TO L FOOT. PT ADMITTED WITH TOXIC METABOLIC ENCEPHALOPATHY, ACUTE NEUTROPENIA, PANCYTOPENIA, SEPSIS WITH POSSIBLE OSTEOMYELITIS, L FOOT INFECTION, HIGH LACTIC ACIDOSIS. HE REQUIRES ASSISTANCE WITH 5/6 ADL'S. HIS MENTATION HAS CLEARED BETWEEN ADMISSION YESTERDAY AND THIS MORNING. HE STATES HE REGRETS DISCHARGING FROM HOSPICE, HE DIDN'T REALIZE HOW MUCH ASSISTANCE HE ACTUALLY REQUIRES, AND HOW COMPROMISED HIS HEALTH IS. HE REPORTS BEING READY TO RE-ENROLL IN HOSPICE. WBC 0.73 ALBUMIN 1.5 BUN 49 PT IS APPROPRIATE FOR HOSPICE, AND FAMILY WAS PRESENT FOR THE MEETING.
--- NOTE | 2025-01-13 19:57 | NUR ---
SHIFT SUMMARY- PT HAD A MEETING WITH , FAMILY AND PALLIATIVE CARE. PT WANTS TO RETURN TO HOSPICE SERVICE. THE PLAN IS TO CONTINUE TO DO IV ABX WHILE THE PT IS HERE UNTIL [facility]. PT IN BED, CALL LIGHT IN REACH NO S&S OF DISTRESS NOTED. NEW WOUND CARE ORDERS PLACED AND WOUND DRESSING CHANGE COMPLETED. PT HAS A CHRONIC ISSA IN PLACE, CATH CARE COMPLETED TODAY. PT WAS REPOSITIONED Q2 HOWEVER HE TENDS TO MOVE HIMSELF BACK TO HIS BACK QUITE OFTEN.
[2025-01-13 20:11] VITALS: BP 115/51
--- NOTE | 2025-01-14 02:35 | NUR ---
SHIFT SUMMARY: PT REPOSITIONED Q2 AND MEDICATED PER EMAR. PLAN IS FOR [facility]. NO ACUTE CHANGES DURING THIS SHIFT. BED ALARM SET.
[2025-01-14 06:07] LABS: Vancomycin, Random 21.2 ug/mL
[2025-01-14 06:22] VITALS: BP 139/59
[2025-01-14 07:32] VITALS: BP 144/64
[2025-01-14 19:18] VITALS: BP 109/59
--- NOTE | 2025-01-14 19:29 | NUR ---
SHIFT SUMMARY CLIENT IS AOX1-2, WITH EPISODES OF CONFUSION. ISSA REMAINS IN PLACE AND DRAINING TO GRAVITY. CLIENT IS MEDICATION COMPLIANT. REMAINS ON IV ABT. BED IS IN LOW POSITION AND CALL LIGHT IS WITHIN REACH
[2025-01-15 03:55] VITALS: BP 137/64
[2025-01-15 06:03] LABS: Vancomycin, Trough 16.8 ug/mL (5.0-10.0)
--- NOTE | 2025-01-15 06:16 | NUR ---
SHIFT SUMMARY PT SLEPT INTERMITTENTLY DURING THE NIGHT. MEDICATED X1 FOR PAIN PER EMAR. MEPELEX INTACT TO COCCYX AND LEFT ELBOW. COMPRESSION WRAP INTACT TO LLE WITH AIR CAST IN PLACE. PT REPOSITIONED DURING THE NIGHT. IV ANTIBIOTICS CONTINUE PER ORDER. PT CONFUSED AND FORGETFUL DURING THE NIGHT.
[2025-01-15 08:33] VITALS: BP 131/61
--- NOTE | 2025-01-15 11:33 | NUR ---
PT IS TO BE DC TO [facility] POST [facility] TODAY AT 1230. BROTHER IN ROOM AND INFORMATION GONE OVER WITH HIM. PT VAPE WAS GIVEN TO PT BROTHER. THIS NURSE ATTEMPTED TO CALL AND GIVE REPORT TO FACILITY BUT LEFT A MESSAGE THERE WAS NO ANSWER.
[2025-01-15] MEDS ORDERED: AMOCLA500 PO (11:45)
[2025-01-15] MEDS ORDERED: OXYC5 PO (11:45)
--- NOTE | 2025-01-15 11:46 | NUR ---
UPDATE HOME MED REC NOT COMPLETED. DISCHRAGE ORDER IN. DR. BROUSSARD NOTIFIED AND VERBAL ORDER RECIEVED TO DISCONTINUE ALL HOME MEDS.
--- NOTE | 2025-01-15 12:55 | NUR ---
DISCHARGED VIA READS WITH [facility] TO TRANSPORT TO [facility]
== END 2025-01-15 12:55 | disposition hospice, inpatient (51) | DRG 564 ==
LOC: ER 09:06 → MEDS 14:07 → ENPENDDIS 01-15 11:16 → MEDS 01-15 12:55
PROVIDERS: Emergency Medicine; ADMIT Internal Medicine
DX: T87.44 Infection of amputation stump, left lower extremity (principal); A41.9 Sepsis, unspecified organism; L89.153 Pressure ulcer of sacral region, stage 3; G92.8 Other toxic encephalopathy; G93.41 Metabolic encephalopathy; Z51.5 Encounter for palliative care; Z66 Do not resuscitate; R65.20 Severe sepsis without septic shock; N17.9 Acute kidney failure, unspecified; E87.1 Hypo-osmolality and hyponatremia; L03.116 Cellulitis of left lower limb; M86.172 Other acute osteomyelitis, left ankle and foot; D61.818 Other pancytopenia; E87.20 Acidosis, unspecified; E11.69 Type 2 diabetes mellitus with other specified complication; N18.32 Chronic kidney disease, stage 3b; Y83.5 Amputation of limb(s) as the cause of abnormal reaction of the patient, or of later complication, without mention of misadventure at the time of the procedure; R62.7 Adult failure to thrive; R54 Age-related physical debility; E11.22 Type 2 diabetes mellitus with diabetic chronic kidney disease; I12.9 Hypertensive chronic kidney disease with stage 1 through stage 4 chronic kidney disease, or unspecified chronic kidney disease; K21.9 Gastro-esophageal reflux disease without esophagitis; E11.51 Type 2 diabetes mellitus with diabetic peripheral angiopathy without gangrene; I48.91 Unspecified atrial fibrillation; I25.10 Atherosclerotic heart disease of native coronary artery without angina pectoris; E88.09 Other disorders of plasma-protein metabolism, not elsewhere classified; M32.9 Systemic lupus erythematosus, unspecified; I25.2 Old myocardial infarction; Z85.828 Personal history of other malignant neoplasm of skin; Z87.891 Personal history of nicotine dependence; Z68.26 Body mass index [BMI] 26.0-26.9, adult; Z89.511 Acquired absence of right leg below knee; Z88.8 Allergy status to other drugs, medicaments and biological substances; Z91.041 Radiographic dye allergy status; Z88.2 Allergy status to sulfonamides; Z79.82 Long term (current) use of aspirin; Z79.02 Long term (current) use of antithrombotics/antiplatelets; Z79.891 Long term (current) use of opiate analgesic; Z79.84 Long term (current) use of oral hypoglycemic drugs; Z91.81 History of falling
CPT/HCPCS: 36415; 71045; 73630; 80053; 80202; 81001; 82947; 83605; 85025; 85651; 86140; 87040; 87077; 87086; 87106; 87186; 96365; 96375; 99285-25; A9270; J1644; J2270; J2405; J2543; J3010; J3373; J7050; J7120